=== PATIENT | female | born 1965 | race African-American/Black ===

== ENCOUNTER 2016-08-09 00:17 | Emergency (ER) | payer OTHER ==
[~2016-08-09] VITALS: Ht 165.1 cm; Wt 88.0 kg
[~2016-08-09 00:17] MED LIST: DIPH25CA58 PO; DOCU-27 PO; HYDR-971 PO; NAPR500T3 PO; OXYC-323 PO; PRED20TA PO; SULF1TAB24 PO
[2016-08-09 01:02] VITALS: BP 145/90
[2016-08-09] MEDS ORDERED: BENZ100C PO (01:08)
[2016-08-09] MEDS ORDERED: PROAIR RESPICL90 MCG IH (01:08)
[2016-08-09] MEDS ORDERED: PRED50TA PO (01:08)
[2016-08-09] MEDS ORDERED: PROM118S2 PO (01:08)
[2016-08-09] MEDS ORDERED: AMOX875T PO (01:08)
--- NOTE | 2016-08-09 01:08 | PHYS DOC ---
Past Medical History Past Medical History: Other Additional Past Medical Histor: HEART MURMUR (NON MEDICATED) Past Surgical History: Hysterectomy, Tubal ligation Additional Past Surgical Histo: Abscess drainage Alcohol Use: Occasionally Drug Use: None Adult General Chief Complaint Chief Complaint: COUGH HPI HPI Patient is a 51 year old female with history of smoking addiction who presents today with a productive cough, bilateral ear pain and body aches and chills for one week. Review of Systems Review of Systems Constitutional: Body aches and chills Eyes: Denies change in visual acuity, redness, or eye pain [] HENT: Bilateral ear pain Respiratory: Cough Cardiovascular: No additional information not addressed in HPI [] GI: Denies abdominal pain, nausea, vomiting, bloody stools or diarrhea [] : Denies dysuria or hematuria [] Musculoskeletal: Denies back pain or joint pain [] Integument: Denies rash or skin lesions [] Neurologic: Denies headache, focal weakness or sensory changes [] Endocrine: Denies polyuria or polydipsia [] Current Medications Current Medications Current Medications Medications (Trade) Dose Ordered Sig/[place] Start Time Stop Time Status Last Admin Dose Admin Promethazine HCl/ Codeine (Phenergan With Codeine) 10 ml 1X ONCE 08/09/16 01:15 08/09/16 01:16 Allergies Allergies Allergies Coded Allergies Type Severity Reaction Last Updated Verified aspirin Allergy Severe Hives 06/14/16 No Physical Exam Physical Exam Constitutional: Well developed, well nourished, no acute distress, non-toxic appearance. [] HENT: Normocephalic, atraumatic, bilateral external ears normal, oropharynx moist, no oral exudates, nose normal. [] Bilateral TM are mildly injected with small amount of cloudy fluid. Eyes: PERRLA, EOMI, conjunctiva normal, no discharge. [] Neck: Normal range of motion, no tenderness, supple, no stridor. [] Cardiovascular:Heart rate regular rhythm, no murmur [] Lungs & Thorax: Bilateral breath sounds clear to auscultation [] Abdomen: Bowel sounds normal, soft, no tenderness, no masses, no pulsatile masses. [] Skin: Warm, dry, no erythema, no rash. [] Back: No tenderness, no CVA tenderness. [] Extremities: No tenderness, no cyanosis, no clubbing, ROM intact, no edema. [] Neurologic: Alert and oriented X 3, normal motor function, normal sensory function, no focal deficits noted. [] Psychologic: Affect normal, judgement normal, mood normal. [] Current Patient Data Vital Signs Vital Signs Date Time Temp Pulse Resp B/P Pulse Ox O2 Delivery O2 Flow Rate FiO2 08/09/16 00:29 99.1 97 20 151/83 96 Room Air 99.1 EKG EKG [] Radiology/Procedures Radiology/Procedures [] Course & Med Decision Making Course & Med Decision Making Pertinent Labs and Imaging studies reviewed. (See chart for details) Patient is in the ED with a productive cough, bilateral otitis media, body aches and chills. Symptoms have been going on for 1 week. Flu swab has no benefit at this point in terms of treatment. Chest x-ray interpreted by Dr. Ross is negative for any acute findings. Discharged with amoxicillin for 10 days. Discharged with prednisone and albuterol inhaler Andie Patton. Encouraged to consider smoking cessation. Follow-up with her own PCP in one week. Dragon Disclaimer Dragon Disclaimer This electronic medical record was generated, in whole or in part, using a voice recognition dictation system. Departure Departure Impression: Primary Impression: Otitis media Additional Impressions: Acute bronchitis Body aches Chills Smoking addiction Disposition: 01 HOME, SELF-CARE Condition: STABLE Referrals: RAE VAUGHN MD (PCP) Follow-up with your own doctor in one week Patient Instructions: Acute Bronchitis, [id number], Otitis Media, Adult Additional Instructions: You were seen for acute bronchitis and otitis media. Take Tylenol/ Motrin for body aches and chills. Complete your antibiotics. Take the rest of the prescribed medicines as ordered. Follow-up with your doctor in one week. Come back to the emergency room for any concerning symptoms. Scripts Promethazine Hcl/Codeine (Promethazine-Codeine Syrup)118 Ml Syrup5 Ml PO Q4- 6HRS #90 ML Prov:RITAAANDRES GREENHOUSE TRANSPLANTER 08/09/16 Amoxicillin 875 Mg Tablet1 Tab PO BID #20 TAB Prov:MUTUNGA,ANDRES GREENHOUSE TRANSPLANTER 08/09/16 Albuterol Sulfate (Proair Respiclick)90 Mcg Aer.pow.ba1 Puff IH PRN Q6HRS PRN SHORTNESS OF BREATH #1 INHALER Prov:MUTUNGA,ANDRES GREENHOUSE TRANSPLANTER 08/09/16 Benzonatate (Tessalon Perle)100 Mg Capsule1 Cap PO TID #30 CAP Prov:RITACarrieANDRES ISSA 08/09/16 Prednisone 50 Mg Tablet1 Tab PO DAILY #5 TAB Prov:KAVONROBINAANDRES APRN 08/09/16 Problem Qualifiers Primary Impression: Otitis media Otitis media type: other nonsuppurative Laterality: bilateral Chronicity: acute Recurrence: not specified as recurrent Qualified Code: H65.193 - Other acute nonsuppurative otitis media, bilateral Additional Impressions: Acute bronchitis Bronchitis organism: unspecified organism Qualified Code: J20.9 - Acute bronchitis, unspecified DORISANDRES PARSONS Aug 09, 2016 01:08
[2016-08-09] MEDS ORDERED: PROMETH/CODEINE 6.25/10MG 5 ML SYRUP. PO ONE (01:15)
--- NOTE | 2016-08-09 07:33 | RAD ---
Portable chest, 08/09/2016: History: Cough Comparison is made to a study from 07/14/2014. The heart size and pulmonary vascularity are normal. No pulmonary infiltrates are seen. There is no evidence of pleural fluid. IMPRESSION: No acute cardiopulmonary abnormality is detected.
[2016-08-09 08:23] LABS: OBC FLU VALID
== END 2016-08-09 01:23 | disposition home or self-care (01) ==
LOC: ER 00:17
DX: H65.193 Other acute nonsuppurative otitis media, bilateral (principal); J20.9 Acute bronchitis, unspecified; F17.200 Nicotine dependence, unspecified, uncomplicated; Z88.6 Allergy status to analgesic agent
CPT/HCPCS: 71010; 87804; 99285-25

== ENCOUNTER 2016-08-16 19:25 | Emergency (ER) | payer OTHER ==
[~2016-08-16] VITALS: Ht 165.1 cm; Wt 88.0 kg
[~2016-08-16 19:25] MED LIST changes: +AMOX875T PO; +BENZ100C PO; +PRED50TA PO; +PROAIR RESPICL90 MCG IH; +PROM118S2 PO
[2016-08-16] MEDS ORDERED: PROAIR HFA8.5 GM INH (20:02)
--- NOTE | 2016-08-16 20:02 | PHYS DOC ---
Past Medical History Past Medical History: Hypertension, Other Past Surgical History: Hysterectomy, Tubal ligation Additional Past Surgical Histo: Abscess drainage Smoking: Cigarettes Alcohol Use: Occasionally Drug Use: None Adult General Chief Complaint Chief Complaint: HYPERTENSION HPI HPI Patient is a 51 year old female who presents with intermittent gradual onset headaches over the past 2 days and concern for elevated blood pressures. She has blood pressures in 160s/110s. She started a CCB per her Composer Teaching Artist today. She notes continued yet improving cough and intermittent chest pressure and states she did not get the right inhaler from the pharmacy. States her 's proair inhaler helps her and she would like a script for that. She states she took tylenol prior to arrival and does not want any other pain medication at this time. She denies f/c, exertional symptoms, diaphoresis, dizziness, vision changes, numbness, tingling, weakness. Review of Systems Review of Systems Constitutional: Denies fever or chills [] Eyes: Denies change in visual acuity, redness, or eye pain [] HENT: Denies nasal congestion or sore throat [] Respiratory: Denies shortness of breath [] Cardiovascular: No additional information not addressed in HPI [] GI: Denies abdominal pain, nausea, vomiting, bloody stools or diarrhea [] : Denies dysuria or hematuria [] Musculoskeletal: Denies back pain or joint pain [] Integument: Denies rash or skin lesions [] Neurologic: Denies focal weakness or sensory changes [] Endocrine: Denies polyuria or polydipsia [] Allergies Allergies Allergies Coded Allergies Type Severity Reaction Last Updated Verified aspirin Allergy Severe Hives 06/14/16 No Physical Exam Physical Exam Constitutional: Well developed, well nourished, no acute distress, non-toxic appearance. [] HENT: Normocephalic, atraumatic, bilateral external ears normal, oropharynx moist, no oral exudates, nose normal. [] Eyes: PERRLA, EOMI. [] Neck: Normal range of motion, supple, no stridor. [] Cardiovascular:Heart rate regular rhythm [] Lungs & Thorax: Bilateral breath sounds clear to auscultation. Intermittent dry cough. Normal work of breathing [] Abdomen: Bowel sounds normal, soft, no tenderness. [] Skin: Warm, dry, no erythema, no rash. [] Back: Normal ROM. [] Extremities: ROM intact, no edema. [] Neurologic: Alert and oriented X 3, normal motor function, normal sensory function, no focal deficits noted, cranial nerves 2 through 12 intact. [] Psychologic: Affect normal, judgement normal, mood normal. [] Current Patient Data Vital Signs Vital Signs Date Time Temp Pulse Resp B/P Pulse Ox O2 Delivery O2 Flow Rate FiO2 08/16/16 19:31 98.3 95 20 135/82 97 Room Air 98.3 EKG EKG EKG as interpreted by me as normal sinus rhythm, rate 88, no ST-T changes, normal intervals, no ectopy Course & Med Decision Making Course & Med Decision Making Appears well on exam. Encouraged close primary care doctor follow-up for chronic hypertension. Return precautions given. She understands and agrees with plan. Dragon Disclaimer Dragon Disclaimer This electronic medical record was generated, in whole or in part, using a voice recognition dictation system. Departure Departure Impression: Primary Impression: Cough Additional Impressions: Chronic hypertension Headache Disposition: HOME, SELF-CARE Condition: STABLE Referrals: RAE VAUGHN MD (PCP) Patient Instructions: Acute Bronchitis, [id number] Additional Instructions: Use albuterol inhaler as needed for cough. Follow-up with your primary care doctor within one week. Return for any concerns. Scripts Albuterol Sulfate (Proair Hfa Inhaler)8.5 Gm Hfa.aer.ad2 Puff INH Q4HRS PRN SHORTNESS OF BREATH #1 INHALER Prov:Stefani RILEY MD 08/16/16 Problem Qualifiers Additional Impressions: Headache Headache type: unspecified Headache chronicity pattern: episodic headache Intractability: not intractable Qualified Code: R51 - Headache Stefani RILEY MD Aug 16, 2016 20:02
[2016-08-16 20:10] VITALS: BP 119/77
--- NOTE | 2016-08-17 06:26 | EKG ---
[facility] [address] [place] [address] Test Date: 2016-08-16 Test Time: 19:39:59 Pat Name: LAWSON PLASCENCIA Department: Room: Gender: F Boiler Service Technician: : 1965 Requested By: Stefani RILEY Order Number: [id number] Reading MD: Silke Barr Measurements Intervals [place] Rate: 88 P: 89 MN: 140 QRS: 67 QRSD: 98 T: 73 QT: 346 QTc: 422 Interpretive Statements SINUS RHYTHM NORMAL EKG Electronically Signed On 08-19-2016 20:09:13 REGISTERED MIDWIFE by Silke Barr
== END 2016-08-16 20:15 | disposition home or self-care (01) ==
LOC: ER 19:25
DX: I10 Essential (primary) hypertension (principal); R51 Headache; R05 Cough; R07.89 Other chest pain; F17.210 Nicotine dependence, cigarettes, uncomplicated; Z90.710 Acquired absence of both cervix and uterus; Z88.6 Allergy status to analgesic agent
CPT/HCPCS: 93005; 99283-25; 99284-25

== ENCOUNTER 2016-10-13 12:15 | Emergency (ER) | payer OTHER ==
[~2016-10-13] VITALS: Ht 165.1 cm; Wt 91.2 kg
[~2016-10-13 12:15] MED LIST changes: +PROAIR HFA8.5 GM INH
--- NOTE | 2016-10-13 12:42 | EKG ---
[facility] [address] [place] [address] Test Date: 2016-10-13 Test Time: 12:38:33 Pat Name: LAWSON PLASCENCIA Department: Room: Gender: F Patient Transport Officer: : 1965 Requested By: LAVONNE SETH Order Number: [id number] Reading MD: Silke Barr Measurements Intervals [place] Rate: 99 P: 64 AK: 142 QRS: 59 QRSD: 96 T: 93 QT: 390 QTc: 500 Interpretive Statements SINUS RHYTHM NON SPECIFIC T ABNORMALITY PROLONGED QT NON SPECIFIC ST DEPRESSION Electronically Signed On 10-14-2016 17:36:55 CDT by Silke Barr
[2016-10-13] MEDS ORDERED: MECLIZINE HCL 12.5 MG TABLET. PO ONE (12:45)
--- NOTE | 2016-10-13 13:04 | PHYS DOC ---
Past Medical History Past Medical History: Hypertension, Other Additional Past Medical Histor: HEART MURMUR (NON MEDICATED) Past Surgical History: Hysterectomy, Tubal ligation Additional Past Surgical Histo: Abscess drainage Alcohol Use: Occasionally Drug Use: None Adult General Chief Complaint Chief Complaint: DIZZY/LIGHT HEADED HPI HPI 51-year-old female presenting to the emergency department today with nausea and vertigo. This been present for approximately 6-7 hours. She denies chest pain feels little short of breath. She reports a family history of vertigo. She does have a mild headache that is similar to previous headaches. She has a history of hypertension and has a history of smoking. Location generalized. Duration intermittent. No alleviating factors present. Review of systems is negative for chest pain abdominal pain diarrhea vomiting. All other review of systems is negative unless otherwise noted in history of present illness. Review of Systems Review of Systems SEE ABOVE. Current Medications Current Medications Current Medications Medications (Trade) Dose Ordered Sig/Gurmeet Start Time Stop Time Status Last Admin Dose Admin Meclizine HCl (Antivert) 25 mg 1X ONCE 10/13/16 12:45 10/13/16 12:46 DC 10/13/16 12:46 25 MG Allergies Allergies Allergies Coded Allergies Type Severity Reaction Last Updated Verified aspirin Allergy Severe Hives 06/14/16 No Physical Exam Physical Exam Constitutional: Well developed, well nourished, no acute distress, non-toxic appearance. HENT: Normocephalic, atraumatic, bilateral external ears normal, oropharynx moist, no oral exudates, nose normal. [] Eyes: PERRLA, EOMI, conjunctiva normal, no discharge. Neck: Normal range of motion, no tenderness, supple, no stridor. [] Negative Kernig sign. Negative Brudzinski's sign. Normal range of motion of the neck. Cardiovascular:Heart rate regular rhythm, no murmur Lungs & Thorax: Bilateral breath sounds clear to auscultation [] Abdomen: Bowel sounds normal, soft, no tenderness, no masses, no pulsatile masses. Skin: Warm, dry, no erythema, no rash. [] Back: No tenderness, no CVA tenderness. Extremities: No tenderness, no cyanosis, no clubbing, ROM intact, no edema. [] Neurologic: Mental status: Awake oriented and alert x3 Cranial nerves: Extraocular movements intact, eyebrows jane bilaterally smile symmetric, uvula elevation, shoulder shrug intact, tongue protrusion normal DTRs: 2+ Sensation: equal and normal in all extremities Strength: 5/5 in upper and lower extremities bilaterally HINTS testing: pt shows abnormal head impulse overlooks and readjusts, pos lateral horizontal nystagmus on lateral gaze, no skew present Psychologic: Affect normal, judgement normal, mood normal. [] Current Patient Data Vital Signs Vital Signs Date Time Temp Pulse Resp B/P Pulse Ox O2 Delivery O2 Flow Rate FiO2 10/13/16 12:19 97.9 105 22 147/102 98 Room Air 97.9 Lab Values Laboratory Tests Test 10/13/16 13:05 White Blood Count 15.3x10^3/uL (4.0-11.0) H Red Blood Count 5.92x10^6/uL (3.50-5.40) H Hemoglobin 15.5g/dL (12.0-15.5) Hematocrit 46.8% (36.0-47.0) Mean Corpuscular Volume 79fL (79-100) Mean Corpuscular Hemoglobin 26pg (25-35) Mean Corpuscular Hemoglobin Concent 33g/dL (31-37) Red Cell Distribution Width 16.9% (11.5-14.5) H Platelet Count 261x10^3/uL (140-400) Neutrophils (%) (Auto) 82% (31-73) H Lymphocytes (%) (Auto) 11% (24-48) L Monocytes (%) (Auto) 7% (0-9) Eosinophils (%) (Auto) 1% (0-3) Basophils (%) (Auto) 0% (0-3) Neutrophils # (Auto) 12.5x10^3uL (1.8-7.7) H Lymphocytes # (Auto) 1.6x10^3/uL (1.0-4.8) Monocytes # (Auto) 1.0x10^3/uL (0.0-1.1) Eosinophils # (Auto) 0.1x10^3/uL (0.0-0.7) Basophils # (Auto) 0.1x10^3/uL (0.0-0.2) Sodium Level 143mmol/L (136-145) Potassium Level 4.2mmol/L (3.5-5.1) Chloride Level 103mmol/L (98-107) Carbon Dioxide Level 28mmol/L (21-32) Anion Gap 12 (6-14) Blood Urea Nitrogen 10mg/dL (7-20) Creatinine 0.7mg/dL (0.6-1.0) Estimated GFR (Cockcroft-Gault) 106.3 Glucose Level 90mg/dL (70-99) Calcium Level 10.0mg/dL (8.5-10.1) Total Bilirubin 0.3mg/dL (0.2-1.0) Direct Bilirubin 0.1mg/dL (0.0-0.2) Aspartate Amino Transferase (AST) 17U/L (15-37) Alanine Aminotransferase (ALT) 24U/L (14-59) Alkaline Phosphatase 110U/L (46-116) Troponin I Quantitative < 0.017ng/mL (0.000-0.055) PZ-Ddx-Y-Type Natriuretic Peptide 96pg/mL (0-124) Total Protein 8.5g/dL (6.4-8.2) H Albumin 4.3g/dL (3.4-5.0) Lipase 59U/L (73-393) L Laboratory Tests 10/13/16 13:05 Laboratory Tests 10/13/16 13:05 EKG EKG [] Radiology/Procedures Radiology/Procedures [] Course & Med Decision Making Course & Med Decision Making Pertinent Labs and Imaging studies reviewed. (See chart for details) 51-year-old female presenting the emergency department with vertigo. Vital signs showed mild hypertension which is chronic for the patient. She currently takes medication for this. Blood work is obtained. Nonspecific leukocytosis. Patient has a history of hysterectomy. She was given meclizine for her vertigo.HINTs testing suggestive of peripheral etiology. obtained x-ray EKG unremarkable. The patient was then discharged home to follow-up with primary care physician over the next 2-3 days. She is provided with meclizine for vertigo [id number] discharge instructions and return precautions given. Patient and who is here with her today are comfortable with plan. Dragon Disclaimer Dragon Disclaimer This electronic medical record was generated, in whole or in part, using a voice recognition dictation system. Departure Departure Impression: Primary Impression: Vertigo Disposition: HOME, SELF-CARE Condition: STABLE Referrals: RAE VAUGHN MD (PCP) Patient Instructions: Vertigo Additional Instructions: Thank you for allowing us to participate in your care today. Followup with your primary care physician in 3 days if your symptoms do not improve. If you do not have a primary care provider you can ask for a list of our primary care providers. Return to the emergency department you have any new or concerning findings. This should be evaluated by the primary care physician and any necessary consulting services for continued management within a few days after discharge. Return to emergency room if you have any new or concerning symptoms including but not limited to fever, chills, nausea, vomiting, intractable pain, any new rashes, chest pain, shortness of air, uncontrolled bleeding, difficulty breathing, and/or vision loss. You may have been prescribed medication that can change in your level of thinking and ability to operate machinery. These medications include hydrocodone and Ativan. Also, Benadryl has been known to do this as well. Be sure to check with your pharmacist and ask if the medications you've prescribed can affect your level of consciousness. I recommend not operating heavy machinery or driving while on medication such as these. Scripts Meclizine Hcl 25 Mg Tablet1 Tab PO PRN TID PRN NAUSEA #9 TAB Prov:LAVONNE SETH MD 10/13/16 LAVONNE SETH MD Oct 13, 2016 13:04
[2016-10-13 13:18] LABS: BASO # 0.1 x10^3/uL (0.0-0.2); BASO % 0 % (0-3); EOS % 1 % (0-3); HEMATOCRIT 46.8 % (36.0-47.0); HEMOGLOBIN 15.5 g/dL (12.0-15.5); LYMPH # 1.6 x10^3/uL (1.0-4.8); LYMPH % 11 % (24-48); MEAN CORPUSCULAR HEMOGLOBIN 26 pg (25-35); MEAN CORPUSCULAR HGB CONC 33 g/dL (31-37); MEAN CORPUSCULAR VOLUME 79 fL (79-100); MONO % 7 % (0-9); NEUT % 82 % (31-73); PLATELET COUNT 261 x10^3/uL (140-400); RED BLOOD COUNT 5.92 x10^6/uL (3.50-5.40); RED CELL DISTRIBUTION WIDTH 16.9 % (11.5-14.5); WHITE BLOOD COUNT 15.3 x10^3/uL (4.0-11.0)
[2016-10-13 13:26] LABS: CREATININE 0.7 mg/dL (0.6-1.0); GFR 106.3; POTASSIUM 4.2 mmol/L (3.5-5.1)
--- NOTE | 2016-10-13 13:31 | RAD ---
AP portable chest radiograph 10/13/2016 Clinical History: Chest pain. An AP portable erect digital radiograph of the chest was obtained. Comparison study is dated 08/09/2016. The cardiac silhouette is normal in size. The thoracic aorta is minimally tortuous. No acute pulmonary infiltrate is seen. No pleural effusion or pneumothorax is noted. The osseous structures are unchanged. Impression: No acute abnormality is seen.
[2016-10-13 13:34] LABS: ALBUMIN 4.3 g/dL (3.4-5.0); DIRECT BILIRUBIN 0.1 mg/dL (0.0-0.2); TOTAL BILIRUBIN 0.3 mg/dL (0.2-1.0); TOTAL PROTEIN 8.5 g/dL (6.4-8.2)
[2016-10-13] MEDS ORDERED: MECL25TA3 PO (13:48)
[2016-10-13 14:00] VITALS: BP 151/96
== END 2016-10-13 14:07 | disposition home or self-care (01) ==
LOC: ER 12:15
DX: R42 Dizziness and giddiness (principal); R51 Headache; D72.829 Elevated white blood cell count, unspecified; I10 Essential (primary) hypertension; Z90.710 Acquired absence of both cervix and uterus; Z98.51 Tubal ligation status; Z88.6 Allergy status to analgesic agent
CPT/HCPCS: 36415; 71010; 80048; 80076; 83690; 83880; 84484; 85027; 93005; 99285; J8597; 10060

== ENCOUNTER 2017-02-05 19:41 | Emergency (ER) | payer OTHER ==
[~2017-02-05] VITALS: Ht 166.4 cm; Wt 91.6 kg
[~2017-02-05 19:41] MED LIST changes: +DOCU-109 PO; -DOCU-27 PO; +MECL25TA3 PO
[2017-02-05] MEDS ORDERED: LIDOCAINE 1% / SOD BICARB 8.4% 20 ML VIAL. IJ ONE (20:30)
--- NOTE | 2017-02-05 20:53 | PHYS DOC ---
Past Medical History Past Medical History: Hypertension, Other Additional Past Medical Histor: HEART MURMUR (NON MEDICATED), frequent abcesses Past Surgical History: Hysterectomy, Tubal ligation Additional Past Surgical Histo: Abscess drainage Additional Information: 1 ppd Alcohol Use: Occasionally Drug Use: None Adult General Chief Complaint Chief Complaint: ABSCESS HPI HPI Patient is a 51 year old female presents to the emergency department stating that she has welts and abscesses under her left axilla that is worse than the one under her right. She states that she has an area on her right buttocks as well. She denies any drainage or discharge coming from any of them. She states the one under her left axilla is very soft and very tender. Patient states that her tetanus immunization is up-to-date. Upon being triaged patient does state that she has had suicidal thoughts. Patient states she has a history of depression has been off of her medicine for a while. Review of Systems Review of Systems Constitutional: Denies fever or chills [] Eyes: Denies change in visual acuity, redness, or eye pain [] HENT: Denies nasal congestion or sore throat [] Respiratory: Denies cough or shortness of breath [] Cardiovascular: No additional information not addressed in HPI [] GI: Denies abdominal pain, nausea, vomiting, bloody stools or diarrhea [] : Denies dysuria or hematuria [] Musculoskeletal: Denies back pain or joint pain [] Integument: Denies rash or skin lesions boiled to bilateral axillary's. Neurologic: Denies headache, focal weakness or sensory changes [] Endocrine: Denies polyuria or polydipsia [] Current Medications Current Medications Current Medications Medications (Trade) Dose Ordered Sig/[facility] Start Time Stop Time Status Last Admin Dose Admin Lidocaine/Sodium Bicarbonate (Buffered Lidocaine 1%) 20 ml 1X ONCE 02/05/17 20:30 02/05/17 20:31 DC 02/05/17 20:35 20 ML Allergies Allergies Allergies Coded Allergies Type Severity Reaction Last Updated Verified aspirin Allergy Severe Hives 06/14/16 No Physical Exam Physical Exam Constitutional: Well developed, well nourished, no acute distress, non-toxic appearance. [] HENT: Normocephalic, atraumatic, bilateral external ears normal, oropharynx moist, no oral exudates, nose normal. [] Eyes: PERRLA, EOMI, conjunctiva normal, no discharge. [] Neck: Normal range of motion, no tenderness, supple, no stridor. [] Cardiovascular:Heart rate regular rhythm, no murmur [] Lungs & Thorax: Bilateral breath sounds clear to auscultation [] Skin: Warm, dry, no erythema, no rash. Abscess noted to left axilla with fluctuant noted, Right axilla with abscess that is hard and nonfluctuant. Patient with no abscess noted to the right buttock. Back: No tenderness Extremities: No tenderness, no cyanosis, no clubbing, ROM intact, no edema. [] Neurologic: Alert and oriented X 3, normal motor function, normal sensory function, no focal deficits noted. [] Psychologic: Affect normal, judgement normal, mood normal. Patient is very tearful and states she is having problems with her depression and would like help getting outpatient therapy. Current Patient Data Vital Signs Vital Signs Date Time Temp Pulse Resp B/P (MAP) Pulse Ox O2 Delivery O2 Flow Rate FiO2 02/05/17 19:44 98.4 90 18 100 Room Air 98.4 EKG EKG [] Radiology/Procedures Radiology/Procedures [] Course & Med Decision Making Course & Med Decision Making Pertinent Labs and Imaging studies reviewed. (See chart for details) Left axilla abscess was cleansed with Betadine, injected with 2 mL of 1% lidocaine buffered. Patient with thick yellow secretion site lanced with a #11 blade to continue to express thick yellow secretions. Patient tolerated procedure well. Patient will be placed on Bactrim 2 tablets twice day for the next 10 days. Patient was also encouraged to use warm moist packs to the right axilla abscess. PAT has been notified to come in and evaluate the patient. PAT here to evaluate the patient. Information provided to patient for followup with mental health via the PAT. Patient will be discharged home in stable condition. Signs and symptoms to return to emergency department. Patient was encouraged to followup with primary care provider in 5-7 days. Patient agrees with discharge instructions, treatment regimen and followup recommendations. All questions and concerns have been answered at patients bedside. [] Dragon Disclaimer Dragon Disclaimer This electronic medical record was generated, in whole or in part, using a voice recognition dictation system. Departure Departure Impression: Primary Impression: Abscess Disposition: HOME, SELF-CARE Condition: STABLE Referrals: RAE VAUGHN MD (PCP) Patient Instructions: Abscess, [id number] Additional Instructions: Keep the area clean and dry. Medication as prescribed. Hydrocodone will cause drowsiness do not take any be alert and oriented. Follow-up to primary care physician in the next 5-7 days. Follow-up through mental health provider within the next week. Return back to emergency prior signs symptoms of become worse. Scripts Sulfamethoxazole/Trimethoprim (BACTRIM DS TABLET) 1 Each Tablet 2 TAB PO BID, #40 TAB Prov: NARESH HICKMAN APRN 02/05/17 Hydrocodone/Apap 5-325 (NORCO 5-325 TABLET) 1 Each Tablet 1 TAB PO PRN Q6HRS Y for PAIN, #10 TAB 0 Refills Prov: NARESH HICKMAN APRN 02/05/17 NARESH HICKMAN APRN Feb 05, 2017 20:53
[2017-02-05 21:30] VITALS: BP 169/88
[2017-02-05] MEDS ORDERED: SULF1TAB24 PO (21:55)
[2017-02-05] MEDS ORDERED: HYDR-971 PO (21:55)
== END 2017-02-05 22:01 | disposition home or self-care (01) ==
LOC: ER 19:41
DX: L02.412 Cutaneous abscess of left axilla (principal); R45.851 Suicidal ideations; F32.9 Major depressive disorder, single episode, unspecified; I10 Essential (primary) hypertension; F17.200 Nicotine dependence, unspecified, uncomplicated; Z88.6 Allergy status to analgesic agent
CPT/HCPCS: 10060; 99283-25

== ENCOUNTER 2017-07-04 16:55 | Emergency (ER) | payer OTHER ==
[2017-07-04] MEDS: CYCLOBENZAPRINE 10 MG TABLET. PO (18:33)
[2017-07-04] MEDS: HYDROcodone/APAP 5/325MG 1 TAB TABLET PO (18:34)
[2017-07-04] MEDS: predniSONE 20 MG TABLET PO (18:34)
== END 2017-07-04 19:30 | disposition home or self-care (01) ==
LOC: ER 16:55
DX: M19.012 Primary osteoarthritis, left shoulder (principal); M75.92 Shoulder lesion, unspecified, left shoulder; I10 Essential (primary) hypertension
CPT/HCPCS: 73030; 93005; 99284-25; J7512

== ENCOUNTER 2018-09-24 13:00 | Emergency (ER) | payer OTHER ==
[~2018-09-24] VITALS: Ht 165.1 cm; Wt 89.4 kg
[2018-09-24 13:00] VITALS: BP 150/89
[~2018-09-24 13:00] MED LIST changes: +ALBU2.5V8 INH; +CYCL10TA2 PO; +DICL50TA4 PO; +GABA300C18 PO; +HYDR-3164 PO; -HYDR-971 PO; +METH4TAB2 PO; +NAPR-514 PO; -NAPR500T3 PO; -OXYC-323 PO; +OXYC1TAB15 PO; -PROAIR HFA8.5 GM INH; -PROM118S2 PO; +PROM118S5 PO
[2018-09-24] MEDS ORDERED: CEPH500C PO (13:41)
[2018-09-24] MEDS ORDERED: SULF1TAB24 PO (13:41)
[2018-09-24] MEDS ORDERED: HYDR-3164 PO (14:19)
--- NOTE | 2018-09-24 16:01 | PHYS DOC ---
Past Medical History Past Medical History: Hypertension, Other Additional Past Medical Histor: "heart murmur"; skin boils, HS Past Surgical History: Hysterectomy, Other Additional Past Surgical Histo: R armpit Alcohol Use: Occasionally Drug Use: None Adult General Chief Complaint Chief Complaint: ABSCESS HPI HPI Patient is a 53 year old female who presents with abscess she has one in the groin and one in the axilla 1 mg her to draining she actually feels better both orbital on the axilla she thinks needs to be drained. She feels feverish at times Review of Systems Review of Systems Constitutional: Eyes: Denies change in visual acuity, redness, or eye pain [] HENT: Denies nasal congestion or sore throat [] Respiratory: Denies cough or shortness of breath [] Cardiovascular: No additional information not addressed in HPI [] Neurologic: Denies headache, focal weakness or sensory changes [] Endocrine: Denies polyuria or polydipsia [] All other systems were reviewed and found to be within normal limits, except as documented in this note. Allergies Allergies Allergies Coded Allergies Type Severity Reaction Last Updated Verified aspirin Allergy Severe Hives 06/14/16 No Physical Exam Physical Exam Constitutional: Well developed, well nourished, no acute distress, non-toxic appearance. [] HENT: Normocephalic, atraumatic, bilateral external ears normal, oropharynx moist, no oral exudates, nose normal. [] Eyes: PERRLA, EOMI, conjunctiva normal, no discharge. [] Neck: Normal range of motion, no tenderness, supple, no stridor. [] Pulmonary: Normal respiratory effort no increased work of breathing no obvious chest wall trauma Skin: Patient has a 3 cm abscess in the left axilla surrounding induration and fluctuance is noted tenderness is noted. Patient deferred groin exam at this time due to the fact that it is already draining she says Neurologic: Alert and oriented X 3, normal motor function, normal sensory function, no focal deficits noted. [] Psychologic: Affect normal, judgement normal, mood normal. [] Current Patient Data Vital Signs Vital Signs Date Time Temp Pulse Resp B/P (MAP) Pulse Ox O2 Delivery O2 Flow Rate FiO2 09/24/18 13:00 98.2 85 18 150/89 (109) 98 98.2 EKG EKG [] Radiology/Procedures Radiology/Procedures [] Course & Med Decision Making Course & Med Decision Making Pertinent Labs and Imaging studies reviewed. (See chart for details) []Procedure note: Incision and drainage verbal consent obtained area prepped usual fashion lidocaine with epi for anesthesia 1 cm incision was made overlying this 3 cm abscess in the left axilla approximate 4-5 ML's of pus was returned loculations were explored patient tolerated overall very well he was covered with gauze and patient was given wound care precautions as well as prescription for Bactrim and Keflex with return precautions discussed in detail. Dragon Disclaimer Dragon Disclaimer This electronic medical record was generated, in whole or in part, using a voice recognition dictation system. Departure Departure Impression: Primary Impression: Hidradenitis suppurativa of left axilla Disposition: HOME, SELF-CARE Condition: STABLE Patient Instructions: Hidradenitis Suppurativa, Sweat Gland Abscess Scripts Hydrocodone/Apap 5-325 (NORCO 5-325 TABLET) 1 Each Tablet 1-2 EACH PO PRN Q6HRS PRN for PAIN, #10 as needed for pain Prov: ALEJANDRA TERRELL MD 09/24/18 Cephalexin (CEPHALEXIN) 500 Mg Capsule 1 CAP PO QID, #40 CAP Prov: ALEJANDRA TERRELL MD 09/24/18 Sulfamethoxazole/Trimethoprim (BACTRIM DS TABLET) 1 Each Tablet 1 TAB PO BID, #20 TAB Prov: ALEJANDRA TERRELL MD 09/24/18 ALEJANDRA TERRELL MD Sep 24, 2018 16:01
== END 2018-09-24 14:30 | disposition home or self-care (01) ==
LOC: ER 13:00
DX: L73.2 Hidradenitis suppurativa (principal); L02.412 Cutaneous abscess of left axilla; I10 Essential (primary) hypertension; Z88.6 Allergy status to analgesic agent
CPT/HCPCS: 10060; 99283

== ENCOUNTER 2018-12-01 19:42 | Emergency (ER) | payer OTHER ==
[~2018-12-01] VITALS: Ht 165.1 cm; Wt 108.9 kg
[~2018-12-01 19:42] MED LIST changes: +CEPH500C PO
[2018-12-01] MEDS ORDERED: IV NORMAL SALINE 1000ML BAG 1,000 ML IV SCH (20:29)
[2018-12-01] MEDS ORDERED: VANCOMYCIN PER PHARMACY MC ONE (20:30)
[2018-12-01] MEDS ORDERED: ACETAMINOPHEN 500 MG TABLET PO ONE (21:00)
[2018-12-01] MEDS ORDERED: PIPERACILLIN/TAZOBACTAM 4.5 GM in IV NORMAL SALINE 100ML 100 ML IV ONE (21:00)
[2018-12-01 21:26] LABS: BASO # 0.1 x10^3/uL (0.0-0.2); BASO % 1 % (0-3); EOS % 1 % (0-3); HEMATOCRIT 40.7 % (36.0-47.0); HEMOGLOBIN 13.6 g/dL (12.0-15.5); LYMPH # 1.9 x10^3/uL (1.0-4.8); LYMPH % 28 % (24-48); MEAN CORPUSCULAR HEMOGLOBIN 27 pg (25-35); MEAN CORPUSCULAR HGB CONC 33 g/dL (31-37); MEAN CORPUSCULAR VOLUME 82 fL (79-100); MONO # 0.8 x10^3/uL (0.0-1.1); MONO % 11 % (0-9); NEUT % 59 % (31-73); PLATELET COUNT 227 x10^3/uL (140-400); RED CELL DISTRIBUTION WIDTH 15.8 % (11.5-14.5); WHITE BLOOD COUNT 6.8 x10^3/uL (4.0-11.0)
[2018-12-01] MEDS ORDERED: VANCOMYCIN 2 GM in IV NORMAL SALINE 500ML BAG 500 ML IV ONE (21:30)
[2018-12-01 21:36] LABS: CALCIUM 9.1 mg/dL (8.5-10.1); CREATININE 0.8 mg/dL (0.6-1.0); GFR 90.4; POTASSIUM 3.9 mmol/L (3.5-5.1)
[2018-12-01 21:42] LABS: ALBUMIN 3.6 g/dL (3.4-5.0); ALBUMIN/GLOBULIN RATIO 1.1 (1.0-1.7); TOTAL BILIRUBIN 0.2 mg/dL (0.2-1.0); TOTAL PROTEIN 6.9 g/dL (6.4-8.2)
[2018-12-01 22:11] LABS: BILIRUBIN,URINE NEGATIVE (NEG); CLARITY,URINE CLEAR; COLOR,URINE YELLOW; NITRITE,URINE NEGATIVE (NEG); PROTEIN,URINE NEGATIVE (NEG-TRACE)
[2018-12-01 22:24] LABS: BACTERIA,URINE FEW /HPF (0-FEW)
[2018-12-01 22:25] LABS: SQUAMOUS EPITHELIAL CELL,UR OCC /LPF
--- NOTE | 2018-12-01 23:22 | RAD ---
CHEST AP ONLY History: Fever Comparison: October 13, 2016 Findings: Single view of the chest is submitted. There is no infiltrate, pneumothorax, or effusion. The pericardial cardiac silhouette is within normal limits in size. Impression: 1. There is no radiographic evidence of acute cardiopulmonary disease. Electronically signed by: Redd Castillo MD (12/01/2018 11:19 PM) [facility]
[2018-12-01] MEDS ORDERED: SULF1TAB24 PO (23:41)
[2018-12-01] MEDS ORDERED: CEPH500T PO (23:41)
--- NOTE | 2018-12-01 23:41 | PHYS DOC ---
Past Medical History Past Medical History: Hypertension, Other Additional Past Medical Histor: "heart murmur"; skin boils, HS Past Surgical History: Hysterectomy, Other Additional Past Surgical Histo: R armpit Alcohol Use: Occasionally Drug Use: None Adult General Chief Complaint Chief Complaint: GENERALIZED BODY ACHES HPI HPI Patient is a 53 year old female with hx of HTN, abscess, MRSA who presents with multiple complaints. Patient states since this morning she's had body aches chills and has been running a fever. She is also complaining of cough with milky sputum. She is also complaining of chronic abscesses on her abdomen, she states the 10 to come on and off. She states some of them have ruptured and drained. She states she has not been on antibiotics for the last 3 months. Denies any nausea vomiting. Denies any chest pain or shortness of breath. Review of Systems Review of Systems Constitutional: Reports fever Eyes: Denies change in visual acuity, redness, or eye pain [] HENT: Denies nasal congestion or sore throat [] Respiratory: Reports cough, denies shortness of breath [] Cardiovascular: No additional information not addressed in HPI [] GI: Denies abdominal pain, nausea, vomiting, bloody stools or diarrhea [] : Denies dysuria or hematuria [] Musculoskeletal: Denies back pain or joint pain [] Integument: Reports abscess to the abdomen and groin region Neurologic: Denies headache, focal weakness or sensory changes [] All other systems were reviewed and found to be within normal limits, except as documented in this note. Current Medications Current Medications Current Medications Medications (Trade) Dose Ordered Sig/[facility] Start Time Stop Time Status Last Admin Dose Admin Acetaminophen (Tylenol) 1,000 mg 1X ONCE 12/01/18 21:00 12/01/18 21:01 DC 12/01/18 21:01 1,000 MG Piperacillin Sod/ Tazobactam Sod 4.5 gm/Sodium Chloride 100 ml @ 200 mls/hr 1X ONCE 12/01/18 21:00 12/01/18 21:29 DC 12/01/18 21:39 200 MLS/HR Sodium Chloride 1,000 ml @ 1,710 mls/hr Q36M 12/01/18 20:29 12/01/18 21:28 DC 12/01/18 21:39 1,710 MLS/HR Vancomycin HCl (Vanco Per Pharmacy) 1 each 1X ONCE 12/01/18 20:30 12/01/18 20:37 DC Vancomycin HCl 2 gm/Sodium Chloride 500 ml @ 250 mls/hr 1X ONCE 12/01/18 21:30 12/01/18 23:29 DC 12/01/18 22:18 250 MLS/HR Allergies Allergies Allergies Coded Allergies Type Severity Reaction Last Updated Verified aspirin Allergy Severe Hives 06/14/16 No Physical Exam Physical Exam Constitutional: Well developed, well nourished, no acute distress, non-toxic a ppearance. [] HENT: Normocephalic, atraumatic, bilateral external ears normal, oropharynx moist, no oral exudates, nose normal. [] Eyes: PERRLA, EOMI, conjunctiva normal, no discharge. [] Neck: Normal range of motion, no tenderness, supple, no stridor. [] Cardiovascular:Heart rate regular rhythm, no murmur [] Lungs & Thorax: Bilateral breath sounds clear to auscultation [] Abdomen: Bowel sounds normal, soft, no tenderness, no masses, no pulsatile masses. [] Skin: 2 tiny open wounds noted on the right lower quadrant, they appear open and draining. The drainage is bloody. Patient states that once in her groin region already open, she will not show them to me. Back: No tenderness, no CVA tenderness. [] Extremities: No tenderness, no cyanosis, no clubbing, ROM intact, no edema. [] Neurologic: Alert and oriented X 3, normal motor function, normal sensory function, no focal deficits noted. [] Psychologic: Affect normal, judgement normal, mood normal. [] Current Patient Data Vital Signs Vital Signs Date Time Temp Pulse Resp B/P (MAP) Pulse Ox O2 Delivery O2 Flow Rate FiO2 12/01/18 22:31 84 20 133/71 (91) 95 Room Air 12/01/18 19:55 100.4 100.4 Lab Values Laboratory Tests Test 12/01/18 21:11 12/01/18 21:30 White Blood Count 6.8 x10^3/uL (4.0-11.0) Red Blood Count 5.00 x10^6/uL (3.50-5.40) Hemoglobin 13.6 g/dL (12.0-15.5) Hematocrit 40.7 % (36.0-47.0) Mean Corpuscular Volume 82 fL (79-100) Mean Corpuscular Hemoglobin 27 pg (25-35) Mean Corpuscular Hemoglobin Concent 33 g/dL (31-37) Red Cell Distribution Width 15.8 % (11.5-14.5) H Platelet Count 227 x10^3/uL (140-400) Neutrophils (%) (Auto) 59 % (31-73) Lymphocytes (%) (Auto) 28 % (24-48) Monocytes (%) (Auto) 11 % (0-9) H Eosinophils (%) (Auto) 1 % (0-3) Basophils (%) (Auto) 1 % (0-3) Neutrophils # (Auto) 4.0 x10^3uL (1.8-7.7) Lymphocytes # (Auto) 1.9 x10^3/uL (1.0-4.8) Monocytes # (Auto) 0.8 x10^3/uL (0.0-1.1) Eosinophils # (Auto) 0.0 x10^3/uL (0.0-0.7) Basophils # (Auto) 0.1 x10^3/uL (0.0-0.2) Sodium Level 140 mmol/L (136-145) Potassium Level 3.9 mmol/L (3.5-5.1) Chloride Level 105 mmol/L (98-107) Carbon Dioxide Level 24 mmol/L (21-32) Anion Gap 11 (6-14) Blood Urea Nitrogen 9 mg/dL (7-20) Creatinine 0.8 mg/dL (0.6-1.0) Estimated GFR (Cockcroft-Gault) 90.4 BUN/Creatinine Ratio 11 (6-20) Glucose Level 112 mg/dL (70-99) H Lactic Acid Level 1.4 mmol/L (0.4-2.0) Calcium Level 9.1 mg/dL (8.5-10.1) Total Bilirubin 0.2 mg/dL (0.2-1.0) Aspartate Amino Transferase (AST) 12 U/L (15-37) L Alanine Aminotransferase (ALT) 16 U/L (14-59) Alkaline Phosphatase 99 U/L (46-116) Troponin I Quantitative < 0.017 ng/mL (0.000-0.055) Total Protein 6.9 g/dL (6.4-8.2) Albumin 3.6 g/dL (3.4-5.0) Albumin/Globulin Ratio 1.1 (1.0-1.7) Procalcitonin < 0.10 ng/mL (0.00-0.10) Urine Color Yellow Urine Clarity Clear Urine pH 7.0 Urine Specific [place] 1.020 Urine Protein Negative mg/dL (NEG-TRACE) Urine Glucose (UA) Negative mg/dL (NEG) Urine Ketones (Stick) Negative mg/dL (NEG) Urine Blood Moderate (NEG) Urine Nitrite Negative (NEG) Urine Bilirubin Negative (NEG) Urine Urobilinogen Dipstick 1.0 mg/dL (0.2 mg/dL) Urine Leukocyte Esterase Small (NEG) Urine RBC 6-10 /HPF (0-2) Urine WBC 5-10 /HPF (0-4) Urine Squamous Epithelial Cells Occ /LPF Urine Bacteria Few /HPF (0-FEW) Urine Mucus Mod /LPF Laboratory Tests 12/01/18 21:11 Laboratory Tests 12/01/18 21:11 EKG EKG 21:[address] Swanson sinus rhythm heart rate 96 no STEMI[] Radiology/Procedures Radiology/Procedures []PROCEDURE: CHEST AP ONLY CHEST AP ONLY History: Fever Comparison: October 13, 2016 Findings: Single view of the chest is submitted. There is no infiltrate, pneumothorax, or effusion. The pericardial cardiac silhouette is within normal limits in size. Impression: 1. There is no radiographic evidence of acute cardiopulmonary disease. Electronically signed by: Mandeep Dee MD (12/01/2018 11:19 PM) [facility] DICTATED and SIGNED BY: MANDEEP DEE MD DATE: 12/01/18 3439 Course & Med Decision Making Course & Med Decision Making Pertinent Labs and Imaging studies reviewed. (See chart for details) This is a 53-year-old female patient presenting to the ED today with multiple complaints including fever, body aches, chills, cough, chronic abscesses on her abdomen and groin region that sounds like they've been positive for MRSA before. Tetanus is up-to-date, on arrival to the ED temperature 100.4, heart rate 111, started on sepsis protocol including IV antibiotics and fluids. Given Tylenol as well. Chest x-ray is negative, CBC with normal WBC, CMP with no acute findings, lactic is normal, urine analysis is noted for UTI. Patient was discharged with cephalexin, and Bactrim to cover her for UTI as well as her chronic abscess. Follow-up with her PCP in the next 1-2 weeks. Provided return precautions and discharged in stable condition. Dragon Disclaimer Dragon Disclaimer This electronic medical record was generated, in whole or in part, using a voice recognition dictation system. Departure Departure Impression: Primary Impression: Abdominal wall abscess Additional Impressions: Urinary tract infection Fever Cough Disposition: HOME, SELF-CARE Condition: STABLE Referrals: KALINA PARR MD (PCP) follow up in 1-2 weeks Patient Instructions: Abscess, Fever, Adult, Urinary Tract Infection Additional Instructions: You were evaluated in the emergency room and noted to have chronic abscesses and urinary tract infection, cough and fever, please take Tylenol as needed for your fever. Complete the prescribed antibiotics and follow-up with your own doctor in 1-2 weeks. Scripts Sulfamethoxazole/Trimethoprim (BACTRIM DS TABLET) 1 Each Tablet 1 TAB PO BID, #20 TAB Prov: ANDRES GEORGE APRN 12/01/18 Cephalexin (CEPHALEXIN) 500 Mg Tablet 1 TAB PO QID, #40 TAB Prov: ANDRES GEORGE APRN 12/01/18 Problem Qualifiers Additional Impressions: Urinary tract infection Urinary tract infection type: site unspecified Hematuria presence: without hematuria Qualified Codes: N39.0 - Urinary tract infection, site not specified Fever Fever type: unspecified Qualified Codes: R50.9 - Fever, unspecified ANDRES GEORGE APRN Dec 01, 2018 23:41
[2018-12-02] VITALS: BP 126/75
--- NOTE | 2018-12-02 05:40 | EKG ---
[facility] [address] [place] [address] Test Date: 2018-12-01 Test Time: 21:29:35 Pat Name: LAWSON PLASCENCIA Department: Room: Gender: F Machine Fixer: : 1965 Requested By: ANDRES GEORGE Order Number: [id number] Reading MD: Measurements Intervals [place] Rate: 96 P: 64 ID: [id number] QRS: 65 QRSD: 96 T: 77 QT: 342 QTc: 433 Interpretive Statements SINUS RHYTHM LEFT ATRIAL ABNORMALITY QRS(T) CONTOUR ABNORMALITY CONSIDER ANTEROSEPTAL MYOCARDIAL DAMAGE ABNORMAL ECG RI6.01 No previous ECG available for comparison
== END 2018-12-02 00:25 | disposition home or self-care (01) ==
LOC: ER 19:42
DX: L02.211 Cutaneous abscess of abdominal wall (principal); N39.0 Urinary tract infection, site not specified; R05 Cough; R50.9 Fever, unspecified; I10 Essential (primary) hypertension; Z90.710 Acquired absence of both cervix and uterus; Z88.6 Allergy status to analgesic agent
CPT/HCPCS: 36415; 71045; 80053; 81001; 83605; 84145; 84484; 85025; 87040; 87071; 87075; 93005; 96365; 96367; 99285; J2543; J3370; J7030; J7040

== ENCOUNTER 2019-01-13 13:51 | Emergency (ER) | payer OTHER ==
[~2019-01-13] VITALS: Ht 167.6 cm; Wt 91.2 kg
[~2019-01-13 13:51] MED LIST changes: +CEPH500T PO
[2019-01-13 14:01] VITALS: BP 163/103
--- NOTE | 2019-01-13 14:22 | PHYS DOC ---
Past Medical History Past Medical History: Hypertension, Other Additional Past Medical Histor: "heart murmur"; skin boils, HS Past Surgical History: Hysterectomy, Other Additional Past Surgical Histo: R armpit Alcohol Use: Occasionally Drug Use: None Adult General Chief Complaint Chief Complaint: ABSCESS HPI HPI 53-year-old female presents to ER via POV for complaints of abscess in her groin/genital area which has increased in size/pain over past couple of days. Patient is been evaluated in the ER prior for abscess and states she has seen Dr. Acevedo multiple times for abscess in her axillary and groin- with +MRSA hx. Patient reports some she has had multiple small bumps on her abdomen although the one in her groin is the largest. Patient states she was just in the emergency room in November and had same area drained with packing. She denies abd pain, N/V/D, or fever. She also reports she has had urinary frequency denies hematuria, urgency, or vaginal symptoms. Review of Systems Review of Systems Constitutional: Denies fever or chills [] Eyes: Denies change in visual acuity, redness, or eye pain [] HENT: Denies nasal congestion or sore throat [] Respiratory: Denies cough or shortness of breath [] Cardiovascular: No additional information not addressed in HPI [] GI: Denies abdominal pain, nausea, vomiting, bloody stools or diarrhea [] : Denies dysuria or hematuria. Reports urinary freq. Musculoskeletal: Denies back pain or joint pain [] Integument: Reports multiple sores on abd. and upper genital Neurologic: Denies focal weakness or sensory changes [] Endocrine: Denies polyuria or polydipsia [] All other systems were reviewed and found to be within normal limits, except as documented in this note. Current Medications Current Medications Current Medications Medications (Trade) Dose Ordered Sig/[place] Start Time Stop Time Status Last Admin Dose Admin Acetaminophen/ Hydrocodone Bitart (Lortab 5/325) 1 tab 1X ONCE 01/13/19 14:30 01/13/19 14:31 DC 01/13/19 14:29 1 TAB Diphtheria/ Tetanus/[facility]cell Pertussis (Boostrix) 0.5 ml ONCE ONCE 01/13/19 16:00 01/13/19 16:01 Ibuprofen (Motrin) 400 mg 1X ONCE 7/23/19 14:30 01/13/19 14:31 DC 01/13/19 14:29 400 MG Lidocaine HCl (Lidocaine Pf 2% Vial) 4 ml 1X ONCE 01/13/19 14:30 01/13/19 14:31 DC 01/13/19 14:37 4 ML Lidocaine HCl (Xylocaine-Mpf 2% Vial) 4 ml 1X ONCE 01/13/19 14:30 01/13/19 14:31 Cancel Mupirocin (Bactroban) 1 vaishnavi TID 01/13/19 15:00 01/13/19 14:37 1 VAISHNAVI Allergies Allergies Allergies Coded Allergies Type Severity Reaction Last Updated Verified aspirin Allergy Severe Hives 06/14/16 No Physical Exam Physical Exam Constitutional: Well developed, well nourished, no acute distress, non-toxic appearance. [] HENT: Normocephalic, atraumatic, oropharynx moist, nose normal. [] Eyes: Pupils equal, conjunctiva normal, no discharge. [] Neck: Normal range of motion, no tenderness, supple, no stridor. [] Cardiovascular: Heart rate regular rhythm, no murmur [] Lungs & Thorax: Bilateral breath sounds clear to auscultation- resp. equal/nonlabored Abdomen: Bowel sounds normal, soft, no tenderness, no masses, no pulsatile masses. Skin: Warm, dry. Multiple sores on lower abd- no sores on abd with fluctuation. Sores are indurated without surrounding erythema/cellulitis. Abscess rt side groin/suprapubic area with induration/center fluctuation- no labial tendernes s/abscess. 2+ bilat. femoral Back: No tenderness, no CVA tenderness. [] Extremities: No tenderness, no cyanosis, no clubbing, ROM intact, no edema. [] Neurologic: Alert and oriented X 3, normal motor function, normal sensory function, no focal deficits noted. [] Psychologic: Affect normal, judgement normal, mood normal. [] Current Patient Data Vital Signs Vital Signs Date Time Temp Pulse Resp B/P (MAP) Pulse Ox O2 Delivery O2 Flow Rate FiO2 01/13/19 14:29 18 97 Room Air 01/13/19 14:01 98.6 86 163/103 (123) 98.6 Lab Values Laboratory Tests Test 01/13/19 14:18 Urine Collection Type Unknown Urine Color Yellow Urine Clarity Clear Urine pH 6.0 Urine Specific [place] 1.020 Urine Protein Negative mg/dL (NEG-TRACE) Urine Glucose (UA) Negative mg/dL (NEG) Urine Ketones (Stick) Negative mg/dL (NEG) Urine Blood Moderate (NEG) Urine Nitrite Negative (NEG) Urine Bilirubin Negative (NEG) Urine Urobilinogen Dipstick 0.2 mg/dL (0.2 mg/dL) Urine Leukocyte Esterase Negative (NEG) Urine RBC 11-20 /HPF (0-2) Urine WBC 0 /HPF (0-4) Urine Squamous Epithelial Cells Mod /LPF Urine Bacteria 0 /HPF (0-FEW) Urine Mucus Mod /LPF EKG EKG [] Radiology/Procedures Radiology/Procedures Abscess Incision and Drainage with irrigation by me: 1450 Location: Rt groin/suprapubic area- no labial involvement Anesthesia: Local 1% Lidocaine 2mL Technique: #11 blade Irrigated. Disrupted loculations w/ instrumentation. Moderate amt purulent drainage from site- wound cx obtained. Irrigated wound with NS Packin/" plain- non adherent drsg applied Complications: Neurovascularly intact post procedure 48 hour wound check. Scar minimization instructions given. Course & Med Decision Making Course & Med Decision Making Pertinent Labs and Imaging studies reviewed. (See chart for details) Pt was evaluated in the ER for right-sided groin/suprapubic abscess- she has had history of multiple abscesses requiring I and D in the past. She had I&D done while in the ER and packing placed. Wound culture pending at time of discharge. Patient was provided with Bactroban ointment and had small amount applied to multiple sores on lower abdomen. Patient has seen Dr. Acevedo in the past and so she plans to follow-up with him if wound worsens and with concerns. Patient is being provided with prescription of Bactrim for antibiotic treatment of abscess. Patient aware that packing needed removed in 24-48 hours. Patient also voiced concerns of urinary frequency and so UA was obtained. No infection bed patient did have large amount of blood. On UA obtained in November she also had a large amount of blood at that time. Patient has had hysterectomy and so discussed need for follow-up with her primary care physician and or a urologist for repeat evaluation and further care on this. Will provide urology referral info on discharge paperwork. Patient has been nontoxic in appearance and is in no stress at time of discharge discussion. Patient's blood pressure was elevated however she has history of hypertension states she did not take her blood pressure medication today with plans to take as soon as she gets home. Patient was provided with pain medicine while in the ER and advised on continued use of [id number] Tylenol and/or ibuprofen and will be provided with small quantity of [place] tablets with discharge paperwork. Education provided on signs and symptoms to return to ER. Discharge instructions were discussed. Patient to follow-up with primary care physician if symptoms persist or with any concerns. Dragon Disclaimer Dragon Disclaimer This electronic medical record was generated, in whole or in part, using a voice recognition dictation system. Departure Departure Impression: Primary Impression: Abscess Additional Impression: Hematuria Disposition: 01 HOME, SELF-CARE Condition: STABLE Referrals: KALINA PARR MD (PCP) JEANINE FLOOD MD Patient Instructions: Abscess, Hematuria, Adult Additional Instructions: Warm compress to affected area every 3-4 hours for 20-30 minutes at a time. Tylenol and/or ibuprofen as needed for pain as directed on container. If taking the prescribed [place] avoid additional tylenol products. Packing needs to be removed in 24-48 hours that can be done by your primary care physician. If symptoms persist follow-up with Dr. Acevedo. Your urinalysis showed blood in your urine and this should be reevaluated by her primary care physician and/or a urologist. Scripts Hydrocodone/Apap 5-325 (NORCO 5-325 TABLET) 1 Each Tablet 1 TAB PO PRN Q6HRS PRN for PAIN, #10 TAB 0 Refills No driving or drinking alcohol while taking this medication Prov: JA MOLINA APRN 01/13/19 Sulfamethoxazole/Trimethoprim (BACTRIM DS TABLET) 1 Each Tablet 1 TAB PO BID, #14 TAB 0 Refills Prov: JA MOLINA APRN 01/13/19 Problem Qualifiers JA MOLINA APRN Jan 13, 2019 14:22
[2019-01-13 14:29] LABS: BILIRUBIN,URINE NEGATIVE (NEG); CLARITY,URINE CLEAR; COLOR,URINE YELLOW; NITRITE,URINE NEGATIVE (NEG); PROTEIN,URINE NEGATIVE (NEG-TRACE); UROBILINOGEN,URINE 0.2 mg/dL (0.2 mg/dL)
[2019-01-13] MEDS ORDERED: IBUPROFEN 400 MG TABLET. PO ONE (14:30)
[2019-01-13] MEDS ORDERED: LIDOCAINE 2% PF 2ML VIAL. INJ ONE (14:30)
[2019-01-13] MEDS ORDERED: HYDROcodone/APAP 5/325MG 1 TAB TABLET PO ONE (14:30)
[2019-01-13] MEDS ORDERED: LIDOCAINE 2% PF 5 ML VIAL. INJ ONE (14:30)
[2019-01-13 14:46] LABS: BACTERIA,URINE 0 /HPF (0-FEW); SQUAMOUS EPITHELIAL CELL,UR MOD /LPF; WBC,URINE 0 /HPF (0-4)
[2019-01-13] MEDS ORDERED: MUPIROCIN 2 % TOPICAL CREAM 30GM TUBE. TP SCH (15:00)
[2019-01-13] MEDS ORDERED: HYDR-3164 PO (15:07)
[2019-01-13] MEDS ORDERED: SULF1TAB24 PO (15:07)
[2019-01-13] MEDS ORDERED: DIPHTH,PERTUSS(ACELL),TET TOX 0.5 ML DISP.SYRIN. VAX IM ONE (16:00)
== END 2019-01-13 15:52 | disposition home or self-care (01) ==
LOC: ER 13:51
DX: L02.214 Cutaneous abscess of groin (principal); R31.9 Hematuria, unspecified; I10 Essential (primary) hypertension; Z88.6 Allergy status to analgesic agent; Z90.710 Acquired absence of both cervix and uterus
CPT/HCPCS: 10060; 81001; 87070; 99284; J2001

== ENCOUNTER 2019-03-10 14:56 | Emergency (ER) | payer OTHER ==
[~2019-03-10] VITALS: Ht 165.1 cm; Wt 91.7 kg
[~2019-03-10 14:56] MED LIST changes: +CEPH-264 PO; +HYDR-2761 PO
[2019-03-10 15:21] VITALS: BP 159/105
[2019-03-10] MEDS ORDERED: LIDOCAINE 2% 20 ML VIAL. IJ ONE (15:45)
[2019-03-10] MEDS ORDERED: DOXY100T PO (16:06)
--- NOTE | 2019-03-10 16:06 | PHYS DOC ---
Past Medical History Past Medical History: Hypertension, Other Additional Past Medical Histor: "heart murmur"; skin boils, HS Past Surgical History: Hysterectomy, Other Additional Past Surgical Histo: bilat axila surgery Additional Information: 1.5 ppd Alcohol Use: Occasionally Drug Use: None Adult General Chief Complaint Chief Complaint: SKIN RASH/ABSCESS HPI HPI Patient is a 53 year old female who presents for abscess to the left axillary region. The patient states that she gets these frequently at least once a month. She has seen dermatology. She says that she has started developing a scar tissue in her arms due to the frequency of the incision and drainages. Rates her pain as 10 out of 10 in severity and sharp. Review of Systems Review of Systems Constitutional: Denies fever or chills [] Eyes: Denies change in visual acuity, redness, or eye pain [] HENT: Denies nasal congestion or sore throat [] Respiratory: Denies cough or shortness of breath [] Cardiovascular: No additional information not addressed in HPI [] GI: Denies abdominal pain, nausea, vomiting, bloody stools or diarrhea [] : Denies dysuria or hematuria [] Musculoskeletal: Denies back pain or joint pain [] Integument: Reports 2 boils under left axilla. Neurologic: Denies headache, focal weakness or sensory changes [] Endocrine: Denies polyuria or polydipsia [] Complete systems were reviewed and found to be within normal limits, except as documented in this note. Current Medications Current Medications Current Medications Medications (Trade) Dose Ordered Sig/Gurmeet Start Time Stop Time Status Last Admin Dose Admin Acetaminophen (Tylenol) 500 mg 1X ONCE 03/10/19 16:30 03/10/19 16:31 Lidocaine HCl 20 ml 1X ONCE 03/10/19 15:45 03/10/19 15:50 DC 03/10/19 15:50 20 ML Allergies Allergies Allergies Coded Allergies Type Severity Reaction Last Updated Verified aspirin Allergy Severe Hives 06/14/16 No Physical Exam Physical Exam Constitutional: Well developed, well nourished, no acute distress, non-toxic appearance. [] HENT: Normocephalic, atraumatic, bilateral external ears normal, oropharynx moist, no oral exudates, nose normal. [] Eyes: PERRLA, EOMI, conjunctiva normal, no discharge. [] Neck: Normal range of motion, no tenderness, supple, no stridor. [] Skin: 2 boils under left axilla with no flatulence. Back: No tenderness, no CVA tenderness. [] Extremities: No tenderness, no cyanosis, no clubbing, ROM intact, no edema. [] Neurologic: Alert and oriented X 3, normal motor function, normal sensory function, no focal deficits noted. [] Psychologic: Affect normal, judgement normal, mood normal. [] Current Patient Data Vital Signs Vital Signs Date Time Temp Pulse Resp B/P (MAP) Pulse Ox O2 Delivery O2 Flow Rate FiO2 03/10/19 15:21 98.9 81 18 159/105 (123) 98 Room Air 98.9 EKG EKG [] Radiology/Procedures Radiology/Procedures [] Course & Med Decision Making Course & Med Decision Making Pertinent Labs and Imaging studies reviewed. (See chart for details) Discussed with patient the options of drainage are to put on antibiotic and see if it improves without drainage. Patient requested scripts for narcotics and narcotics before drainage. Discussed with patient on this is not standard practice and will not be doing this. Offered to use no evidence for the drainage however discussed with patient that I don't think the drainage is completely necessary as there is no fluctuance. She started felt quite a bit of scar tissue due to her history and she pictures of a more risk for more scar tissue. Will d/c on antibiotics. Dragon Disclaimer Dragon Disclaimer This electronic medical record was generated, in whole or in part, using a voice recognition dictation system. Departure Departure Impression: Primary Impression: Boil, axilla Disposition: 01 HOME, SELF-CARE Condition: STABLE Referrals: RAE VAUGHN MD (PCP) Additional Instructions: Thank you for visiting [facility]. We appreciate you trusting us with your care. If any additional problems come up don't hesitate to return to visit us. Please follow up with your primary care provider so they can plan additional care if needed and know about the problem that you had. If symptoms worsen come back to the Emergency Department. Any concerning symptoms that start such as chest pain, shortness of air, weakness or numbness on one side of the body, running high fevers or any other concerning symptoms return to the ER. You have been prescribed an antibiotic today to help fight your infection. Please take all of the antibiotic as directed. If after 48 hours the infection is not improving, please return for more care. If the infection worsens, return to ER for additional care. Scripts Doxycycline Hyclate (DOXYCYCLINE HYCLATE) 100 Mg Tablet 1 TAB PO BID for 10 Days, #20 TAB Prov: AMANUEL MEJIA APRN 03/10/19 Problem Qualifiers Primary Impression: Boil, axilla Laterality: left Qualified Codes: L02.422 - Furuncle of left axilla AMANUEL MEJIA APRN Mar 10, 2019 16:06
[2019-03-10] MEDS ORDERED: ACETAMINOPHEN 500 MG TABLET PO ONE (16:30)
== END 2019-03-10 16:11 | disposition home or self-care (01) ==
LOC: ER 14:56
DX: L02.412 Cutaneous abscess of left axilla (principal); I10 Essential (primary) hypertension; F17.200 Nicotine dependence, unspecified, uncomplicated; Z90.710 Acquired absence of both cervix and uterus; Z88.6 Allergy status to analgesic agent
CPT/HCPCS: 99283; J2001

== ENCOUNTER 2019-04-11 13:01 | Emergency (ER) | payer OTHER ==
[~2019-04-11] VITALS: Ht 165.1 cm; Wt 96.2 kg
[~2019-04-11 13:01] MED LIST changes: +DOXY100T PO
[2019-04-11 13:31] VITALS: BP 161/89
[2019-04-11] MEDS ORDERED: HYDROcodone/APAP 5/325MG 1 TAB TABLET PO ONE (14:45)
--- NOTE | 2019-04-11 15:47 | RAD ---
EXAM: PA, oblique and lateral views of the left wrist DATE: 04/11/2019 2:41 PM INDICATION: Left wrist pain after fall COMPARISON: No Prior FINDINGS/ IMPRESSION: Small ossification at the dorsal aspect of the proximal carpal row with moderate overlying soft tissue swelling is most suspicious for dorsal avulsion fracture likely triquetral. Electronically signed by: Davide Gonzalez MD (04/11/2019 3:44 PM) [facility]
[2019-04-11] MEDS ORDERED: HYDR-3164 PO (15:58)
--- NOTE | 2019-04-11 16:58 | PHYS DOC ---
Past Medical History Past Medical History: Hypertension, Other Additional Past Medical Histor: "heart murmur"; skin boils, HS (RACHAEL DURAN [employer] THREAD [employer]) Past Surgical History: Hysterectomy, Other Additional Past Surgical Histo: bilat axila surgery (RACHAEL DURAN THREAD CHECKER) Alcohol Use: Occasionally Drug Use: None (RACHAEL DURAN [employer]) Adult General Chief Complaint Chief Complaint: WRIST PAIN [facility] HPI Patient is a 54 year old female who presents with severe pain to her left wrist after she slipped and fell at work. She states that the pain and swelling have significantly worsened. The injury happened about two hours prior to arrival. She denies any other injury. (RACHAEL DURAN THREAD CHECKER) Review of Systems Review of Systems Constitutional: Denies fever or chills [] Respiratory: Denies cough or shortness of breath [] Cardiovascular: No additional information not addressed in HPI [] Musculoskeletal: See history of present illness Integument: Denies rash or skin lesions [] Neurologic: Denies headache, focal weakness or sensory changes [] Endocrine: Denies polyuria or polydipsia [] All other systems were reviewed and found to be within normal limits, except as documented in this note. (RACHAEL DURAN THREAD CHECKER) Current Medications Current Medications Current Medications Medications (Trade) Dose Ordered Sig/Gurmeet Start Time Stop Time Status Last Admin Dose Admin Acetaminophen/ Hydrocodone Bitart (Lortab 5/325) 1 tab 1X ONCE 04/11/19 14:45 04/11/19 14:46 DC 04/11/19 14:52 1 TAB (ALEJANDRA TERRELL MD) Allergies Allergies Allergies Coded Allergies Type Severity Reaction Last Updated Verified aspirin Allergy Severe Hives 06/14/16 No (ALEJANDRA TERRELL MD) Physical Exam Physical Exam Constitutional: Well developed, well nourished, no acute distress, non-toxic appearance. [] Cardiovascular:Heart rate regular rhythm, no murmur [] Lungs & Thorax: Bilateral breath sounds clear to auscultation [] Skin: Warm, dry, no erythema, no rash. [] Extremities: tenderness to the wrist with edema noted, no cyanosis, no clubbing, ROM decreased due to pain, ulcers and sensation are intact distal to injury Neurologic: Alert and oriented X 3, normal motor function, normal sensory function, no focal deficits noted. [] Psychologic: Affect normal, judgement normal, mood normal. [] (RACHAEL DURAN APRN) Current Patient Data Vital Signs Vital Signs Date Time Temp Pulse Resp B/P (MAP) Pulse Ox O2 Delivery O2 Flow Rate FiO2 04/11/19 14:52 Room Air 04/11/19 13:31 97.2 92 16 161/89 (113) 98 97.2 (ALEJANDRA TERRELL MD) EKG EKG [] (RACHAEL DURAN APRN) Radiology/Procedures Radiology/Procedures []PATIENT: LAWSON PLASCENCIA JACCOUNT: [id number]#: [id number] : 1965 LOCATION: ER AGE: 54 SEX: F EXAM STATUS: REG ER ORD. PHYSICIAN: RACHAEL DURAN APRN REASON: left wrist pain after fall at work PROCEDURE: WRIST 3V LEFT EXAM: PA, oblique and lateral views of the left wrist DATE: 04/11/2019 2:41 PM INDICATION: Left wrist pain after fall COMPARISON: No Prior FINDINGS/ IMPRESSION: Small ossification at the dorsal aspect of the proximal carpal row with moderate overlying soft tissue swelling is most suspicious for dorsal avulsion fracture likely triquetral. Electronically signed by: Davide Higuera MD (04/11/2019 3:44 PM) [facility] DICTATED and SIGNED BY: DAVIDE HIGUERA MD DATE: 04/11/19 1544 (RACHAEL DURAN APRN) Course & Med Decision Making Course & Med Decision Making Pertinent Labs and Imaging studies reviewed. (See chart for details) []The patient was placed in a gutter splint. She is to follow-up with orthopedics. She was given a prescription for small amount of [place] to help with pain control. She has been instructed not to drive or operate heavy machinery while taking this medication. (RACHAEL DURAN APRN) Course & Med Decision Making Staff Physician Addendum: I was working in the ER during the course of this patient's visit. I was available for consultation as needed, but I was not directly involved in the care of this patient. (ALEJANDRA TERRELL MD) Dragon Disclaimer Dragon Disclaimer This electronic medical record was generated, in whole or in part, using a voice recognition dictation system. (RACHAEL DURAN APRN) Departure Departure Impression: Primary Impression: Fracture, triquetral bone Disposition: HOME/RESIDENCE PRIOR TO ADM Condition: STABLE Referrals: OLGA ALMANZAR MD Patient Instructions: Wrist Fracture Additional Instructions: Keep the splint clean and dry. Follow up with orthopedics for further evaluation and management of your fracture. If worsening return to the emergency department. Scripts Hydrocodone/Apap 5-325 (NORCO 5-325 TABLET) 1 Each Tablet 1-2 TAB PO Q4-6HRS PRN for PAIN, #20 TAB Prov: RACHAEL DURAN APRN 04/11/19 RACHAEL DURAN APRN Apr 11, 2019 16:58 ALEJANDRA TERRELL MD Apr 12, 2019 16:18
== END 2019-04-11 16:18 | disposition home or self-care (01) ==
LOC: ER 13:01
DX: S62.112A Displaced fracture of triquetrum [cuneiform] bone, left wrist, initial encounter for closed fracture (principal); I10 Essential (primary) hypertension; Z90.710 Acquired absence of both cervix and uterus; Z88.6 Allergy status to analgesic agent; W01.0XXA Fall on same level from slipping, tripping and stumbling without subsequent striking against object, initial encounter; Y93.89 Activity, other specified; Y92.89 Other specified places as the place of occurrence of the external cause; Y99.8 Other external cause status
CPT/HCPCS: 29125; 73110; 99284

== ENCOUNTER 2019-04-13 19:00 | Emergency (ER) | payer OTHER ==
[~2019-04-13] VITALS: Ht 166.4 cm; Wt 96.2 kg
[2019-04-13 19:20] VITALS: BP 181/94
--- NOTE | 2019-04-13 21:35 | PHYS DOC ---
Past Medical History Past Medical History: Hypertension Additional Past Medical Histor: "heart murmur"; skin boils, HS Past Surgical History: Hysterectomy, Other Additional Past Surgical Histo: bilat axila surgery Alcohol Use: None Drug Use: None Adult General Chief Complaint Chief Complaint: UPPER EXTREMITY PAIN HPI HPI Patient is a 54 year old female who presents to [facility] CC of left shoulder pain. Pt says she fell 2 days ago and was seen in the ER and was diagnosed with a left wrist fracture. Patient was placed in a cast. Patient states that today her left shoulder also was pending and so she came for further evaluation. Patient states that she has not been able to follow up with orthopedics as that job claim number was not given to her and so the orthopedic office was waiting for his number. Patient states that at the number centimeters and she will see her PCP for this. Patient denies any new injury. Review of Systems Review of Systems Constitutional: Denies fever or chills [] Eyes: Denies change in visual acuity, redness, or eye pain [] HENT: Denies nasal congestion or sore throat [] Respiratory: Denies cough or shortness of breath [] Cardiovascular: No additional information not addressed in HPI [] GI: Denies abdominal pain, nausea, vomiting, bloody stools or diarrhea [] : Denies dysuria or hematuria [] Musculoskeletal: Complains of pain in left shoulder All other systems were reviewed and found to be within normal limits, except as documented in this note. Allergies Allergies Allergies Coded Allergies Type Severity Reaction Last Updated Verified aspirin Allergy Severe Hives 06/14/16 No Physical Exam Physical Exam Constitutional: Well developed, well nourished, no acute distress, non-toxic appearance. [] HENT: Normocephalic, atraumatic Eyes: PERRLA, EOMI Respiratory: No respiratory distress Back: No tenderness, no CVA tenderness. [] Extremities: Tenderness in the left shoulder. He has a cast in place in the left wrist and lower arm. Neurovascularly intact. Cap refill normal. Patient able to move her fingers without difficulty. Neurologic: Alert and oriented X 3, Psychologic: Affect normal, judgement normal, mood normal. [] Current Patient Data Vital Signs Vital Signs Date Time Temp Pulse Resp B/P (MAP) Pulse Ox O2 Delivery O2 Flow Rate FiO2 10/21/19 19:20 98.7 94 19 181/94 (123) 95 Room Air 98.7 EKG EKG [] Radiology/Procedures Radiology/Procedures Ordered x-ray of the left shoulder. Impressions: X-ray shows no acute fractures. Course & Med Decision Making Course & Med Decision Making Pertinent Imaging studies reviewed. (See chart for details) X-ray of the left shoulder does not show any acute fractures. Patient's left upper extremity is neurovascularly intact. Discussed results and plan of care with patient. Discussed results and plan of care with patient. Patient is instructed to follow up with PCP in one to 2 days. Appropriate discharge instructions given to patient to return to the ED or to seek immediate medical evaluation. Dragon Disclaimer Dragon Disclaimer This electronic medical record was generated, in whole or in part, using a voice recognition dictation system. Departure Departure Impression: Primary Impression: Strain of shoulder, left Disposition: 01 HOME, SELF-CARE Condition: STABLE Referrals: RAE VAUGHN MD (PCP) APPLE STONE DO Apr 13, 2019 21:35
--- NOTE | 2019-04-13 23:31 | RAD ---
Three-view left shoulder radiographs 04/13/2019 CLINICAL HISTORY: Left shoulder pain for 3 days post fall. AP internal and external rotation and transscapular digital radiographs of the left shoulder were obtained. No fracture or dislocation of the left shoulder is seen. Mild degenerative changes are seen involving the left AC joint and left glenohumeral joint. IMPRESSION: No fracture or dislocation of the left shoulder is seen. Electronically signed by: Rasheed Rees MD (04/13/2019 11:28 PM) [facility]
== END 2019-04-13 21:42 | disposition home or self-care (01) ==
LOC: ER 19:00
DX: S46.912A Strain of unspecified muscle, fascia and tendon at shoulder and upper arm level, left arm, initial encounter (principal); I10 Essential (primary) hypertension; Z90.710 Acquired absence of both cervix and uterus; Z88.6 Allergy status to analgesic agent; W18.39XA Other fall on same level, initial encounter; Y93.89 Activity, other specified; Y92.89 Other specified places as the place of occurrence of the external cause; Y99.8 Other external cause status
CPT/HCPCS: 73030; 99284

== ENCOUNTER → 2020-09-19 | Outpatient (CLI) | payer OTHER ==
[2019-06-22 11:00] VITALS: BP 136/90
[~2020-09-19] MED LIST changes: +BUPR100T8 PO; +DOXY100C2 PO; +GUAI120L35 PO; +IPRA3AMP29 NEB; +LINZESS145 MCG PO; +MECL-75 PO; -MECL25TA3 PO; +MONT10TA49 PO; +NIFE60TA90 PO; +QUET300T5 PO; +TRAZ-123 PO
--- NOTE | 2020-09-20 04:05 | RAD ---
XR CHEST 2V History: Reason: BRONCHITIS. Comparison: Two-view chest June 20, 2019. Findings: The cardiomediastinal silhouette is normal. Pulmonary vasculature is normal. The lungs are clear. No pleural effusion or pneumothorax is seen. There is no acute bone abnormality. IMPRESSION: No acute cardiopulmonary process. Electronically signed by: Herminio Castellanos MD (09/20/2020 4:02 AM) [facility]
== END ==
LOC: RAD 11:47
PROVIDERS: ATTEND Internal Medicine Pulmonary Disease
DX: J40 Bronchitis, not specified as acute or chronic (principal)
CPT/HCPCS: 71046

== ENCOUNTER → 2020-09-30 | Outpatient (CLI) | payer OTHER ==
[2019-06-22 11:00] VITALS: BP 136/90
--- NOTE | 2020-09-30 11:59 | RAD ---
CT THORAX WO INDICATION: lung nodule COMPARISON STUDY: Radiograph 09/19/2020. TECHNIQUE: Unenhanced axial images were obtained through the lungs and upper abdomen. Coronal and sa gittal multiplanar reconstructions were also obtained. PQRS compliance statement: One or more of the following individualized dose reduction techniques were utilized for this examinat ion: 1. Automated exposure control 2. Adjustment of the mA and/or kV according to patient size 3. Use of iterative reconstruction technique FINDINGS: Lungs and Airways: No pulmonary mass or consolidation. Bibasilar dependent atelectasis. Right upper l obe indeterminate nodule (series 8 image 48). Calcified pulmonary granuloma. Bronchial wall thickenin g. Trace upper lobe emphysematous changes. Pleura: The pleural spaces are normal. Heart and Mediastinum: The visualized thyroid gland is normal in size and attenuation. No axillary or supraclavicular lymphadenopathy. No mediastinal, hilar or retrocrural lymphadenopathy. Normal cardia c size. No pericardial effusion. Coronary artery atherosclerotic disease. Mitral annular calcificatio n. The great vessels of the thorax are normal. Abdomen: The visualized abdominal organs demonstrate no abnormality. Bones and Soft Tissues: The visualized skeletal structures and soft tissues of the chest wall are wit hin normal limits. IMPRESSION: Indeterminate right upper lobe 5 mm nodule. Consider optional 12 month follow-up chest CT to assess s tability. Electronically signed by: Redd Briceno MD (09/30/2020 11:57 AM) [id number]
== END ==
LOC: CT 08:45
PROVIDERS: ATTEND Internal Medicine Pulmonary Disease
DX: R91.1 Solitary pulmonary nodule (principal); J98.11 Atelectasis
CPT/HCPCS: 71250

== ENCOUNTER → 2020-10-17 | Outpatient (CLI) | payer OTHER ==
[2019-06-22 11:00] VITALS: BP 136/90
[~2020-10-17] MED LIST changes: +REGADENOSON 0.4 MG/5 ML DISP.SYRIN. IV ONE
--- NOTE | 2020-10-17 13:05 | RAD ---
MR#: [id number] Date of Study: 10/17/2020 Ordering Physician: TEJAL DAMIAN, Referring Physician: QUYEN GERBER Tech: EUFEMIA Zeng APPROVED REPORT Test Type: Pharmacological Stress Nurse/Tech: Stefani Da Silva RN Test Indications: palpitations, pre-op clearance Cardiac History: COPD, HTN, smoker Medications: See Electronic Medical Record Medical History: See Electronic Medical Record Resting ECG: SR Resting Heart Rate: 82 bpm Resting Blood Pressure: 138/77mmHg Pretest Chest Pain: None Nurse/Tech Notes Lungs CTA, S1S2 Consent: The procedure was explained to the patient in lay terms. Informed consent was witnessed. Waldo eout was entered into [employer]. History and Stress Test performed by EUFEMIA Zeng Pharm. Details Pharmacologic stress testing was performed using 0.4mg per 5ml of regadenoson given intravenously ove r 7-10 seconds. Stress Symptoms Dyspnea POST EXERCISE Reason for Termination: Infusion complete Max HR: 105 bpm Max Blood Pressure: 136/67mmHg Blood Pressure response to exercise: Normal blood pressure response during stress. Heart Rate response to exercise: normal response Chest Pain: No. Arrhythmia: Yes. PVC ST Change: No. INTERPRETATION Stress EKG Conclusion: Baseline EKG showed sinus rhythm. No ischemic changes at peak stress. No arr hythmias. Imaging Protocol IMAGE PROTOCOL: Rest Tc-99m/stress Tc-99m 1 day Rest: Stress: Viability: Radiopharm.Tc99m ApvqlzsjbXs98r Sestamibi Ivpn42fOi 32.5mCi Duration 15min. 10min. Img Date 10/17/2020 10/17/2020 Inj-Img [id number]. 60min. Rest Admin Site:IV - Right AntecubitalAdministrator:EUFEMIA Zeng Stress Admin Site: IV - Right AntecubitalAdministrator: EUFEMIA Zeng STRESS DATA End Diast. Vol.94.0mlAv. Heart Rate92.0bpm End Syst. Vol.25.0mlCO Index BSA0.0L/min Myocardial Nzhh494.0gEject. Iqstqqea93.0% Stress Rates Pk. Fill Rate4.11EDV/secLVtime Pk. Fill 195.86msec Pk. Empty Rate6.00ESV/secLVtime Pk. Eject96.00msec /3 Pk. Fill0.89EDV/sec Stress Scores Regional WT1.00Summed WT6.00 Regional WM0.00Summed WM0.00 Study quality was good. Left Ventricular size was Normal at Rest and Stress. Lung uptake was . Left Ventricular ejection fraction is 70%. The rest and stress images show normal perfusion, normal contraction and thickening. LV Perf. Quant 17 Seg. SSS2.00 17 Seg. SRS1.00 17 Seg. SDS2.00 Stress Defect Extent (% LAD)0.00Rest Defect Extent (% LAD)0.60Rev. Defect Extent (% LAD)0.00 Stress Defect Extent (% LCX) 0.00Rest Defect Extent (% LCX)0.00Rev. Defect Extent (% LCX)0.00 Stress Defect Extent (% RCA)0.00Rest Defect Extent (% RCA)0.00Rev. Defect Extent (% RCA)0.00 Stress Defect Extent (% CONOR)0.00Rest Defect Extent (% CONOR)0.20Rev. Defect Extent (% CONOR)0.00 Conclusion 1. Regadenoson cardioisotope stress test did not show any evidence of ischemia or infarct. 2. Normal left ventricular systolic function with ejection fraction calculated at 70%. 3. Low risk for cardiac events. Signed by : Lee Block, Electronically Approved : 10/17/2020 13:05:29
--- NOTE | 2020-10-18 08:51 | CARD ---
MR#: [id number] Date of Study: 10/17/2020 Ordering Physician: TEJAL DAMIAN, Referring Physician: TEJAL DAMIAN, Tech: Rosalie Maguire, [facility] APPROVED REPORT EXAM: Two-dimensional and M-mode echocardiogram with Doppler and color Doppler. Other Information Quality : AverageHR: 84bpm INDICATION Dyspnea RISK FACTORS Hypertension Smoking 2D DIMENSIONS RVDd2.7 (2.9-3.5cm)Left Atrium(2D)2.9 (1.6-4.0cm) IVSd1.0 (0.7-1.1cm)Aortic Root(2D)3.4 (2.0-3.7cm) LVDd5.3 (3.9-5.9cm)LVOT Diameter2.0 (1.8-2.4cm) PWd1.1 (0.7-1.1cm)LVDs2.5 (2.5-4.0cm) FS (%) 52.7 %SV113.4 ml LVEF(%)83.4 (>50%) Aortic Valve AoV Peak Ishan.154.9cm/sAoV VTI25.9cm AO Peak GR.9.6mmHgLVOT Peak Ishan.133.0cm/s LVOT VTI 23.77cmAO Mean GR.5mmHg SIMÓN (VMAX)2.15ct7BPZ (VTI)3.02cm2 AI P 1/2 Xpkk172jr Mitral Valve MV E Grfqrtlm07.9cm/sMV DECEL LEXF404qp MV A Uzsewsbf056.2cm/sMV KVN94dv E/A Ratio0.8MVA (PHT)2.41cm2 TDI E/Lateral E'12.0E/Medial E'11.3 Pulmonary Valve PV Peak Ijsoqkwi587.2cm/sPV Peak Grad.4mmHg Pulmonary Vein S1 Mlngssbw79.1cm/sD2 Jetbvski25.4cm/s PVa [id number] LEFT VENTRICLE The left ventricle is normal size. There is mild concentric left ventricular hypertrophy. The left ve ntricular systolic function is normal. The Ejection Fraction is 60-65%. There is normal LV segmental wall motion. Transmitral Doppler flow pattern is Grade I-abnormal relaxation pattern. RIGHT VENTRICLE The right ventricle is normal size. There is normal right ventricular wall thickness. The right ventr icular systolic function is normal. ATRIA The left atrium size is normal. The right atrium size is normal. The interatrial septum is intact wit h no evidence for an atrial septal defect or patent foramen ovale as noted on 2-D or Doppler imaging. AORTIC VALVE The aortic valve is normal in structure and function. Doppler and Color Flow revealed mild aortic reg urgitation. Calculated aortic valve area is 2.80 cm2 with maximum pressure gradient of 11 mmHg and me an pressure gradient of 6 mmHg. MITRAL VALVE The mitral valve is normal in structure and function. There is no evidence of mitral valve prolapse. There is no mitral valve stenosis. Doppler and Color-flow revealed trace mitral regurgitation. TRICUSPID VALVE The tricuspid valve is normal in structure and function. Doppler and Color Flow revealed no tricuspid valve regurgitation noted. There is no tricuspid valve stenosis. PULMONIC VALVE The pulmonic valve is not well visualized. Doppler and Color Flow revealed no pulmonic valvular regur gitation. GREAT VESSELS The aortic root is normal in size. The IVC is normal in size and collapses >50% with inspiration. PERICARDIAL EFFUSION There is no evidence of significant pericardial effusion. Critical Notification Critical Value: No <Conclusion> The left ventricular systolic function is normal. The Ejection Fraction is 60-65%. There is normal LV segmental wall motion. Transmitral Doppler flow pattern is Grade I-abnormal relaxation pattern. Mild aortic regurgitation. Trace mitral regurgitation. There is no evidence of significant pericardial effusion. Signed by : Lee Block, Electronically Approved : 10/18/2020 08:50:39
== END ==
LOC: NM 08:26
PROVIDERS: ATTEND Internal Medicine Cardiovascular Disease
DX: I35.1 Nonrheumatic aortic (valve) insufficiency (principal); I51.7 Cardiomegaly; Z87.891 Personal history of nicotine dependence
CPT/HCPCS: 78452; 93017; 93306; A9500; J2785

== ENCOUNTER 2020-12-11 00:41 | Observation (INO) | payer OTHER ==
[~2020-12-11] VITALS: Ht 165.1 cm; Wt 99.6 kg
[~2020-12-11 00:41] MED LIST changes: -REGADENOSON 0.4 MG/5 ML DISP.SYRIN. IV ONE
[2020-12-11] MEDS ORDERED: NITROGLYCERIN SUBLINGUAL 0.4 MG BOTTLE OF 25. SL PRN ×2 (01:00→02:45)
--- NOTE | 2020-12-11 01:01 | ED.ADGEN ---
Past Medical History Past Medical History: Bronchitis, Hypertension Additional Past Medical Histor: "heart murmur"; skin boils, HS Past Surgical History: Hysterectomy, Other Additional Past Surgical Histo: bilat axila surgery Smoking Status: Current Every Day Smoker Alcohol Use: None Drug Use: None General Adult HPI: HPI: Patient is a 55 year old female coming in via EMS for chest pain starting about 30 minutes prior to arrival. Patient states she just got out of the bath and was getting right upper self-esteem which. When she went discharged the refrigerator door with her right hand started feeling pain that she described as heaviness to her left arm this then radiated up her chest. Patient states over the past few days she has been a little bit of dyspnea with exertion, nausea and lightheadedness. Patient denies any prior heart conditions but has a family history of heart disease and siblings. Has a history of hypertension and mild COPD. Patient continues to smoke cigarettes daily. Patient states she was diagnosed with COVID-19 at in June and has not had her vaccinations. Review of Systems: Review of Systems: All other systems within normal limits except for as noted in the HPI Current Medications: Current Medications Medications (Trade) Dose Ordered Sig/[place] Start Time Stop Time Status Last Admin Dose Admin Acetaminophen (Tylenol) 650 mg PRN Q4HRS PRN 12/11/20 02:45 12/12/20 02:44 Levofloxacin (Levaquin) 750 mg 1X ONCE 12/11/20 03:30 12/11/20 03:31 DC 12/11/20 03:35 750 MG Morphine Sulfate (Morphine Sulfate) 4 mg PRN Q2HR PRN 12/11/20 02:45 12/12/20 02:44 12/11/20 02:48 4 MG Nitroglycerin (Nitrostat) 0.4 mg PRN Q5MIN PRN 12/11/20 02:45 12/12/20 02:44 Ondansetron HCl (Zofran) 4 mg PRN Q8HRS PRN 12/11/20 02:45 12/12/20 02:44 Allergies: Allergies: Allergies Coded Allergies Type Severity Reaction Last Updated Verified aspirin Allergy Severe Hives 06/14/16 No Physical Exam: PE: Constitutional: Well developed, well nourished, no acute distress, non-toxic appearance. [] HENT: Normocephalic, atraumatic, bilateral external ears normal, nose normal. [] Eyes: PERRLA, conjunctiva normal, no discharge. [] Neck: No rigidity, supple, no stridor. [] Cardiovascular: Regular rate and rhythm, brisk cap refill [] Lungs & Thorax: Non labored symmetric respirations, no tachypnea or respiratory distress [] Abdomen: Soft, nondistended. Skin: Warm, dry, no erythema, no rash. [] Back: Unremarkable Extremities: No deformities, range of motion grossly intact, no lower extremity edema [] Neurologic: Alert and oriented X 3, no focal deficits noted. [] Psychologic: Affect normal, judgement normal, mood normal. [] Current Patient Data: Labs: Laboratory Tests Test 12/11/20 00:55 12/11/20 02:20 White Blood Count 11.0 x10^3/uL (4.0-11.0) Red Blood Count 4.84 x10^6/uL (3.50-5.40) Hemoglobin 13.0 g/dL (12.0-15.5) Hematocrit 39.9 % (36.0-47.0) Mean Corpuscular Volume 82 fL (79-100) Mean Corpuscular Hemoglobin 27 pg (25-35) Mean Corpuscular Hemoglobin Concent 33 g/dL (31-37) Red Cell Distribution Width 15.0 % (11.5-14.5) H Platelet Count 240 x10^3/uL (140-400) Neutrophils (%) (Auto) 57 % (31-73) Lymphocytes (%) (Auto) 33 % (24-48) Monocytes (%) (Auto) 7 % (0-9) Eosinophils (%) (Auto) 1 % (0-3) Basophils (%) (Auto) 1 % (0-3) Neutrophils # (Auto) 6.3 x10^3/uL (1.8-7.7) Lymphocytes # (Auto) 3.6 x10^3/uL (1.0-4.8) Monocytes # (Auto) 0.8 x10^3/uL (0.0-1.1) Eosinophils # (Auto) 0.1 x10^3/uL (0.0-0.7) Basophils # (Auto) 0.1 x10^3/uL (0.0-0.2) Prothrombin Time 13.8 SEC (11.7-14.0) Prothrombin Time INR 1.1 (0.8-1.1) D-Dimer (Chhaya) 0.46 ug/mlFEU (0.00-0.50) Sodium Level 146 mmol/L (136-145) H Potassium Level 3.9 mmol/L (3.5-5.1) Chloride Level 109 mmol/L (98-107) H Carbon Dioxide Level 23 mmol/L (21-32) Anion Gap 14 (6-14) Blood Urea Nitrogen 12 mg/dL (7-20) Creatinine 0.6 mg/dL (0.6-1.0) Estimated GFR (Cockcroft-Gault) 125.1 BUN/Creatinine Ratio 20 (6-20) Glucose Level 93 mg/dL (70-99) Calcium Level 8.9 mg/dL (8.5-10.1) Magnesium Level 2.1 mg/dL (1.8-2.4) Total Bilirubin 0.2 mg/dL (0.2-1.0) Aspartate Amino Transferase (AST) 11 U/L (15-37) L Alanine Aminotransferase (ALT) 13 U/L (14-59) L Alkaline Phosphatase 92 U/L (46-116) Troponin I Quantitative < 0.017 ng/mL (0.000-0.055) UO-Ccv-W-Type Natriuretic Peptide 206 pg/mL (0-124) H Total Protein 6.6 g/dL (6.4-8.2) Albumin 3.8 g/dL (3.4-5.0) Albumin/Globulin Ratio 1.4 (1.0-1.7) Lipase 47 U/L (73-393) L Urine Collection Type Unknown Urine Color Yellow Urine Clarity Clear Urine pH 6.5 (<5.0-8.0) Urine Specific [place] 1.020 (1.000-1.030) Urine Protein Negative mg/dL (NEG-TRACE) Urine Glucose (UA) Negative mg/dL (NEG) Urine Ketones (Stick) Negative mg/dL (NEG) Urine Blood Moderate (NEG) Urine Nitrite Negative (NEG) Urine Bilirubin Negative (NEG) Urine Urobilinogen Dipstick 1.0 mg/dL (0.2 mg/dL) Urine Leukocyte Esterase Negative (NEG) Urine RBC 20-40 /HPF (0-2) Urine WBC 1-4 /HPF (0-4) Urine Squamous Epithelial Cells Mod /LPF Urine Bacteria Few /HPF (0-FEW) Urine Mucus Mod /LPF Urine Opiates Screen Neg (NEG) Urine Methadone Screen Neg (NEG) Urine Barbiturates Neg (NEG) Urine Phencyclidine Screen Neg (NEG) Urine Amphetamine/Methamphetamine Neg (NEG) Urine Benzodiazepines Screen Neg (NEG) Urine Cocaine Screen Pos (NEG) Urine Cannabinoids Screen Neg (NEG) Urine Ethyl Alcohol Neg (NEG) Laboratory Tests 12/11/20 00:55 Laboratory Tests 12/11/20 00:55 Vital Signs: Vital Signs Date Time Temp Pulse Resp B/P (MAP) Pulse Ox O2 Delivery O2 Flow Rate FiO2 12/11/20 02:48 97 12/11/20 02:47 84 18 136/72 (93) Room Air 12/11/20 00:45 98.6 98.6 EKG: EK: Sinus rhythm, heart rate 89 bpm, normal axis, no ectopy, normal intervals, no change when compared to ECG from 12-01-18 0128: Sinus rhythm, heart rate 80 bpm, grossly unchanged from previous 0201: Sinus rhythm, heart status minute, no change from previous. [] Heart Score: C/O Chest Pain: Yes HEART Score for Chest Pain: HEART Score for Chest Pain Response (Comments) Value History Moderately Suspicious 1 ECG Nonspecific Repolarizatio 1 Age >45 - < 65 1 Risk Factors 1 or 2 Risk Factors 1 Troponin < Normal Limit 0 Total 4 Risk Factors: Risk Factors: DM, Current or recent (<one month) smoker, HTN, HLP, family history of CAD, obesity. Risk Scores: Score 0 - 3: 2.5% MACE over next 6 weeks - Discharge Home Score 4 - 6: 20.3% MACE over next 6 weeks - Admit for Clinical Observation Score 7 - 10: 72.7% MACE over next 6 weeks - Early Invasive Strategies Radiology/Procedures: Radiology/Procedures: [facility] [address] [place], [place] [id number] IMAGING REPORT Signed PATIENT: LAWSON PLASCENCIA ACCOUNT: [id number] : 1965 LOCATION: ER AGE: 55 SEX: F EXAM STATUS: REG ER ORD. PHYSICIAN: JAVIER MORALES MD REASON: chest pain PROCEDURE: PORTABLE CHEST 1V EXAMINATION: XR CHEST 1V CLINICAL HISTORY: Chest pain EXAM DATE/TIME: 12/11/2020 1:03 AM COMPARISON: 09/19/2020 FINDINGS: Lines, Tubes, and Devices: None. Cardiomediastinal Silhouette: Normal heart size. Lungs and Pleura: Increased interstitial opacities in the left greater than right lower lung zones. No evidence of pleural effusion. Pulmonary vasculature unremarkable. Bones and Soft Tissues: No acute osseous abnormality. IMPRESSION: Increased interstitial opacities in the left greater than right lower lung zones. Electronically signed by: Christophe Tinoco DO (12/11/2020 2:22 AM) [facility] DICTATED and SIGNED BY: CHRISTOPHE TINOCO DO DATE: 12/11/20 [id number] [] Course & Med Decision Making: Course & Med Decision Making Pertinent Labs and Imaging studies reviewed. (See chart for details) [] Dragon Disclaimer: Dragon Disclaimer: This electronic medical record was generated, in whole or in part, using a voice recognition dictation system. Departure Departure Impression: Primary Impression: Chest pain Additional Impression: LLL pneumonia Disposition: ADMITTED INPATIENT Condition: STABLE Referrals: RAE VAUGHN MD (PCP) Problem Qualifiers JAVIER MORALES MD Dec 11, 2020 01:01
[2020-12-11 01:16] LABS: BASO # 0.1 x10^3/uL (0.0-0.2); BASO % 1 % (0-3); EOS # 0.1 x10^3/uL (0.0-0.7); EOS % 1 % (0-3); HEMATOCRIT 39.9 % (36.0-47.0); LYMPH # 3.6 x10^3/uL (1.0-4.8); LYMPH % 33 % (24-48); MEAN CORPUSCULAR HEMOGLOBIN 27 pg (25-35); MEAN CORPUSCULAR HGB CONC 33 g/dL (31-37); MEAN CORPUSCULAR VOLUME 82 fL (79-100); MONO # 0.8 x10^3/uL (0.0-1.1); MONO % 7 % (0-9); NEUT # 6.3 x10^3/uL (1.8-7.7); NEUT % 57 % (31-73); PLATELET COUNT 240 x10^3/uL (140-400); RED BLOOD COUNT 4.84 x10^6/uL (3.50-5.40)
[2020-12-11 01:24] LABS: CALCIUM 8.9 mg/dL (8.5-10.1); CREATININE 0.6 mg/dL (0.6-1.0); GFR 125.1; POTASSIUM 3.9 mmol/L (3.5-5.1)
[2020-12-11 01:26] LABS: PROTHROMBIN TIME PATIENT 13.8 SEC (11.7-14.0)
[2020-12-11 01:30] LABS: ALBUMIN 3.8 g/dL (3.4-5.0); ALBUMIN/GLOBULIN RATIO 1.4 (1.0-1.7); MAGNESIUM 2.1 mg/dL (1.8-2.4); TOTAL BILIRUBIN 0.2 mg/dL (0.2-1.0); TOTAL PROTEIN 6.6 g/dL (6.4-8.2)
[2020-12-11 01:35] LABS: D-DIMER 0.46 ug/mlFEU (0.00-0.50)
--- NOTE | 2020-12-11 02:24 | RAD ---
EXAMINATION: XR CHEST 1V CLINICAL HISTORY: Chest pain EXAM DATE/TIME: 12/11/2020 1:03 AM COMPARISON: 09/19/2020 FINDINGS: Lines, Tubes, and Devices: None. Cardiomediastinal Silhouette: Normal heart size. Lungs and Pleura: Increased interstitial opacities in the left greater than right lower lung zones. N o evidence of pleural effusion. Pulmonary vasculature unremarkable. Bones and Soft Tissues: No acute osseous abnormality. IMPRESSION: Increased interstitial opacities in the left greater than right lower lung zones. Electronically signed by: Christophe Morin DO (12/11/2020 2:22 AM) [facility]
[2020-12-11 02:30] LABS: BILIRUBIN,URINE NEGATIVE (NEG); CLARITY,URINE CLEAR; COLOR,URINE YELLOW; NITRITE,URINE NEGATIVE (NEG); PH,URINE 6.5 (<5.0-8.0); PROTEIN,URINE NEGATIVE (NEG-TRACE)
[2020-12-11 02:37] LABS: BARBITURATES NEG (NEG); BENZODIAZEPINES NEG (NEG); CANNABINOIDS NEG (NEG); COCAINE POS (NEG); METHADONE NEG (NEG); OPIATES NEG (NEG); PHENCYCLIDINE NEG (NEG)
[2020-12-11] MEDS ORDERED: MORPHINE SULFATE 4 MG/ML VIAL. IV PRN (02:45)
[2020-12-11] MEDS ORDERED: ONDANSETRON PF 4 MG/2 ML VIAL. IV PRN ×2 (02:45→12:15)
[2020-12-11] MEDS ORDERED: ACETAMINOPHEN 325 MG TABLET. PO PRN ×2 (02:45→12:15)
[2020-12-11 02:53] LABS: AMPHETAMINE/METHAMPHETAMINE NEG (NEG)
[2020-12-11 02:58] LABS: BACTERIA,URINE FEW /HPF (0-FEW); RBC,URINE 20-40 /HPF (0-2)
--- NOTE | 2020-12-11 03:54 | EKG ---
[facility] [address] [place] [address] Test Date: 2020-12-11 Test Time: 01:28:20 Pat Name: LAWSON PLASCENCIA Department: Room: Gender: F [address] Vendor: : 1965 Requested By: JAVIER MORALES Order Number: [id number] Reading MD: Measurements Intervals [place] Rate: 81 P: 62 MD: 150 QRS: 54 QRSD: 102 T: 91 QT: 402 QTc: 467 Interpretive Statements SINUS RHYTHM LEFT ATRIAL ABNORMALITY ABNORMAL ECG RI6.02 Compared to ECG 12/11/2020 00:49:35 T-wave abnormality no longer present Possible ischemia no longer present
--- NOTE | 2020-12-11 03:54 | EKG ---
[facility] [address] [place] [address] Test Date: 2020-12-11 Test Time: 02:01:43 Pat Name: LAWSON PLASCENCIA Department: Room: Gender: F Genetic Counsellor: : 1965 Requested By: JAVIER MORALES Order Number: [id number] Reading MD: Measurements Intervals [place] Rate: 77 P: 60 WV: 146 QRS: 52 QRSD: 102 T: 83 QT: 394 QTc: 448 Interpretive Statements SINUS RHYTHM LEFT ATRIAL ABNORMALITY ABNORMAL ECG RI6.02 Compared to ECG 12/11/2020 01:28:20 No significant changes
--- NOTE | 2020-12-11 04:01 | EKG ---
[facility] [address] [place] [address] Test Date: 2020-12-11 Test Time: 00:49:35 Pat Name: LAWSON PLASCENCIA Department: Room: Gender: F [employer]: : 1965 Requested By: JAVIER MORALES Order Number: [id number] Reading MD: Measurements Intervals [place] Rate: 89 P: 63 [place]: 140 QRS: 56 QRSD: 108 T: 120 QT: 398 QTc: 485 Interpretive Statements SINUS RHYTHM LEFT ATRIAL ABNORMALITY QRS(T) CONTOUR ABNORMALITY CONSIDER INFERIOR MYOCARDIAL DAMAGE ST & T ABNORMALITY, CONSIDER HIGH LATERAL ISCHEMIA OR LEFT VENTRICULAR STRAIN ABNORMAL ECG RI6.02 No previous ECG available for comparison
[2020-12-11 09:00] VITALS: BP 157/85
[2020-12-11] MEDS ORDERED: LOSA-73 PO (09:23)
[2020-12-11] MEDS ORDERED: BREO ELLIPTA 21 EACH IH (09:26)
[2020-12-11] MEDS ORDERED: VENTOLIN HFA18 GM INH (09:26)
[2020-12-11] MEDS ORDERED: FLUT1BLS15 IH (09:41)
[2020-12-11] MEDS ORDERED: LINA72CA PO (09:43)
--- NOTE | 2020-12-11 10:38 | PDOC2 ---
CONSULT Date of Consult Date of Consult DATE: 12/11/20 TIME: 10:38 Reason for Consult Reason for Consult: Chest pain Referring Physician Referring Physician: Dr. Ware Identification/Chief Complaint Chief Complaint Chest pain Source Source: Chart review, Patient History of Present Illness Reason for Visit: 55-year-old female without any previous cardiac history presented with chest pain that actually started as aching pain in her left arm and radiated across her chest that she described as pressure-like sensation, 7/10 severity associated with mild shortness of breath. She has baseline dyspnea on exertion secondary to COPD and stated that she ran out of her medications few days ago. She denied any orthopnea/PND, palpitations or syncope. Her chest pain resolved in route to ED and is currently chest pain-free. She has family history of coronary disease and smokes 1 pack of cigarettes daily. Of note, she had a recent 2D echo and Lexiscan nuclear stress test for ischemic evaluation and was told both of them were normal. Past Medical History Cardiovascular: HTN Pulmonary: Bronchitis Psych: No pertinent hx Rheumatologic: No pertinent hx Infectious disease: No pertinent hx Renal/: No pertinent hx Endocrine: No pertinent hx Past Surgical History Past Surgical History: Hysterectomy, Other Family History Family History: Diabetes, Hypertension Social History ALCOHOL: none Drugs: None, Cocaine Current Problem List Problem List Problems Medical Problems: (1) Chest pain Status: Acute (2) LLL pneumonia Status: Acute Current Medications Current Medications Current Medications Nitroglycerin (Nitrostat) 0.4 mg PRN Q5MIN PRN SL CP RATING > 1/10 Last administered on 12/11/20at 01:36; Start 12/11/20 at 01:00; Stop 12/11/20 at 02:40; Status DC Ondansetron HCl (Zofran) 4 mg PRN Q8HRS PRN IV NAUSEA/VOMITING 1ST CHOICE; Start 12/11/20 at 02:45; Stop 12/12/20 at 02:44 Morphine Sulfate (Morphine Sulfate) 4 mg PRN Q2HR PRN IV SEVERE PAIN 7-10 Last administered on 12/11/20at 02:48; Start 12/11/20 at 02:45; Stop 12/12/20 at 02:44 Acetaminophen (Tylenol) 650 mg PRN Q4HRS PRN PO FEVER > 100.3'F; Start 12/11/20 at 02:45; Stop 12/12/20 at 02:44 Nitroglycerin (Nitrostat) 0.4 mg PRN Q5MIN PRN SL CHEST PAIN; Start 12/11/20 at 02:45; Stop 12/12/20 at 02:44 Levofloxacin (Levaquin) 750 mg 1X ONCE PO Last administered on 12/11/20at 03:35; Start 12/11/20 at 03:30; Stop 12/11/20 at 03:31; Status DC Active Scripts Active Reported Linzess (Linaclotide) 72 Mcg Capsule 72 Mcg PO QID PRN Trelegy Ellipta 200-62.5-25 (Fluticasone/Umeclidin/Vilanter) 1 Each Blst.w.dev 1 Each IH DAILY Ventolin Hfa Inhaler (Albuterol Sulfate) 18 Gm Hfa.aer.ad 2 Puff INH QID Losartan Potassium 50 Mg Tablet 50 Mg PO DAILY Trazodone Hcl 100 Mg Tablet 1 Tab PO QHS Seroquel (Quetiapine Fumarate) 300 Mg Tablet 1 Tab PO QHS Allergies Allergies: Coded Allergies: aspirin (Unverified Allergy, Severe, Hives, 06/14/16) ROS PSYCHOLOGICAL ROS: No: Hallucinations Eyes: No Loss of vision HEENT: No: Epistaxis Respiratory: YES: Shortness of breath; No: Hemoptysis Cardiovascular: yes Chest Pain Gastrointestinal: No Vomiting, No Diarrhea Genitourinary: No Hematuria Skin: No Rash Physical Exam General: Alert, No acute distress HEENT: Atraumatic Lungs: Clear to auscultation Heart: Regular rate Abdomen: Soft Extremities: No edema Neuro: Normal speech Psych/Mental Status: Mental status NL Vitals VITALS Vital Signs Date Time Temp Pulse Resp B/P (MAP) Pulse Ox O2 Delivery O2 Flow Rate FiO2 12/11/20 10:02 Room Air 12/11/20 09:00 98.1 84 20 157/85 (109) 94 98.1 Labs Labs Laboratory Tests Test 12/11/20 00:55 12/11/20 02:20 12/11/20 06:09 White Blood Count 11.0 x10^3/uL (4.0-11.0) Red Blood Count 4.84 x10^6/uL (3.50-5.40) Hemoglobin 13.0 g/dL (12.0-15.5) Hematocrit 39.9 % (36.0-47.0) Mean Corpuscular Volume 82 fL (79-100) Mean Corpuscular Hemoglobin 27 pg (25-35) Mean Corpuscular Hemoglobin Concent 33 g/dL (31-37) Red Cell Distribution Width 15.0 % (11.5-14.5) Platelet Count 240 x10^3/uL (140-400) Neutrophils (%) (Auto) 57 % (31-73) Lymphocytes (%) (Auto) 33 % (24-48) Monocytes (%) (Auto) 7 % (0-9) Eosinophils (%) (Auto) 1 % (0-3) Basophils (%) (Auto) 1 % (0-3) Neutrophils # (Auto) 6.3 x10^3/uL (1.8-7.7) Lymphocytes # (Auto) 3.6 x10^3/uL (1.0-4.8) Monocytes # (Auto) 0.8 x10^3/uL (0.0-1.1) Eosinophils # (Auto) 0.1 x10^3/uL (0.0-0.7) Basophils # (Auto) 0.1 x10^3/uL (0.0-0.2) Prothrombin Time 13.8 SEC (11.7-14.0) Prothromb Time International Ratio 1.1 (0.8-1.1) D-Dimer (Chhaya) 0.46 ug/mlFEU (0.00-0.50) Sodium Level 146 mmol/L (136-145) Potassium Level 3.9 mmol/L (3.5-5.1) Chloride Level 109 mmol/L (98-107) Carbon Dioxide Level 23 mmol/L (21-32) Anion Gap 14 (6-14) Blood Urea Nitrogen 12 mg/dL (7-20) Creatinine 0.6 mg/dL (0.6-1.0) Estimated GFR (Cockcroft-Gault) 125.1 BUN/Creatinine Ratio 20 (6-20) Glucose Level 93 mg/dL (70-99) Calcium Level 8.9 mg/dL (8.5-10.1) Magnesium Level 2.1 mg/dL (1.8-2.4) Total Bilirubin 0.2 mg/dL (0.2-1.0) Aspartate Amino Transf (AST/SGOT) 11 U/L (15-37) Alanine Aminotransferase (ALT/SGPT) 13 U/L (14-59) Alkaline Phosphatase 92 U/L (46-116) Troponin I Quantitative < 0.017 ng/mL (0.000-0.055) < 0.017 ng/mL (0.000-0.055) FW-Jsc-M-Type Natriuretic Peptide 206 pg/mL (0-124) Total Protein 6.6 g/dL (6.4-8.2) Albumin 3.8 g/dL (3.4-5.0) Albumin/Globulin Ratio 1.4 (1.0-1.7) Lipase 47 U/L (73-393) Urine Collection Type Unknown Urine Color Yellow Urine Clarity Clear Urine pH 6.5 (<5.0-8.0) Urine Specific [place] 1.020 (1.000-1.030) Urine Protein Negative mg/dL (NEG-TRACE) Urine Glucose (UA) Negative mg/dL (NEG) Urine Ketones (Stick) Negative mg/dL (NEG) Urine Blood Moderate (NEG) Urine Nitrite Negative (NEG) Urine Bilirubin Negative (NEG) Urine Urobilinogen Dipstick 1.0 mg/dL (0.2 mg/dL) Urine Leukocyte Esterase Negative (NEG) Urine RBC 20-40 /HPF (0-2) Urine WBC 1-4 /HPF (0-4) Urine Squamous Epithelial Cells Mod /LPF Urine Bacteria Few /HPF (0-FEW) Urine Mucus Mod /LPF Urine Opiates Screen Neg (NEG) Urine Methadone Screen Neg (NEG) Urine Barbiturates Neg (NEG) Urine Phencyclidine Screen Neg (NEG) Urine Amphetamine/Methamphetamine Neg (NEG) Urine Benzodiazepines Screen Neg (NEG) Urine Cocaine Screen Pos (NEG) Urine Cannabinoids Screen Neg (NEG) Urine Ethyl Alcohol Neg (NEG) Laboratory Tests Test 12/11/20 00:55 12/11/20 02:20 12/11/20 06:09 White Blood Count 11.0 x10^3/uL (4.0-11.0) Red Blood Count 4.84 x10^6/uL (3.50-5.40) Hemoglobin 13.0 g/dL (12.0-15.5) Hematocrit 39.9 % (36.0-47.0) Mean Corpuscular Volume 82 fL (79-100) Mean Corpuscular Hemoglobin 27 pg (25-35) Mean Corpuscular Hemoglobin Concent 33 g/dL (31-37) Red Cell Distribution Width 15.0 % (11.5-14.5) Platelet Count 240 x10^3/uL (140-400) Neutrophils (%) (Auto) 57 % (31-73) Lymphocytes (%) (Auto) 33 % (24-48) Monocytes (%) (Auto) 7 % (0-9) Eosinophils (%) (Auto) 1 % (0-3) Basophils (%) (Auto) 1 % (0-3) Neutrophils # (Auto) 6.3 x10^3/uL (1.8-7.7) Lymphocytes # (Auto) 3.6 x10^3/uL (1.0-4.8) Monocytes # (Auto) 0.8 x10^3/uL (0.0-1.1) Eosinophils # (Auto) 0.1 x10^3/uL (0.0-0.7) Basophils # (Auto) 0.1 x10^3/uL (0.0-0.2) Prothrombin Time 13.8 SEC (11.7-14.0) Prothromb Time International Ratio 1.1 (0.8-1.1) D-Dimer (Chhaya) 0.46 ug/mlFEU (0.00-0.50) Sodium Level 146 mmol/L (136-145) Potassium Level 3.9 mmol/L (3.5-5.1) Chloride Level 109 mmol/L (98-107) Carbon Dioxide Level 23 mmol/L (21-32) Anion Gap 14 (6-14) Blood Urea Nitrogen 12 mg/dL (7-20) Creatinine 0.6 mg/dL (0.6-1.0) Estimated GFR (Cockcroft-Gault) 125.1 BUN/Creatinine Ratio 20 (6-20) Glucose Level 93 mg/dL (70-99) Calcium Level 8.9 mg/dL (8.5-10.1) Magnesium Level 2.1 mg/dL (1.8-2.4) Total Bilirubin 0.2 mg/dL (0.2-1.0) Aspartate Amino Transf (AST/SGOT) 11 U/L (15-37) Alanine Aminotransferase (ALT/SGPT) 13 U/L (14-59) Alkaline Phosphatase 92 U/L (46-116) Troponin I Quantitative < 0.017 ng/mL (0.000-0.055) < 0.017 ng/mL (0.000-0.055) CQ-Vks-O-Type Natriuretic Peptide 206 pg/mL (0-124) Total Protein 6.6 g/dL (6.4-8.2) Albumin 3.8 g/dL (3.4-5.0) Albumin/Globulin Ratio 1.4 (1.0-1.7) Lipase 47 U/L (73-393) Urine Collection Type Unknown Urine Color Yellow Urine Clarity Clear Urine pH 6.5 (<5.0-8.0) Urine Specific [place] 1.020 (1.000-1.030) Urine Protein Negative mg/dL (NEG-TRACE) Urine Glucose (UA) Negative mg/dL (NEG) Urine Ketones (Stick) Negative mg/dL (NEG) Urine Blood Moderate (NEG) Urine Nitrite Negative (NEG) Urine Bilirubin Negative (NEG) Urine Urobilinogen Dipstick 1.0 mg/dL (0.2 mg/dL) Urine Leukocyte Esterase Negative (NEG) Urine RBC 20-40 /HPF (0-2) Urine WBC 1-4 /HPF (0-4) Urine Squamous Epithelial Cells Mod /LPF Urine Bacteria Few /HPF (0-FEW) Urine Mucus Mod /LPF Urine Opiates Screen Neg (NEG) Urine Methadone Screen Neg (NEG) Urine Barbiturates Neg (NEG) Urine Phencyclidine Screen Neg (NEG) Urine Amphetamine/Methamphetamine Neg (NEG) Urine Benzodiazepines Screen Neg (NEG) Urine Cocaine Screen Pos (NEG) Urine Cannabinoids Screen Neg (NEG) Urine Ethyl Alcohol Neg (NEG) Assessment/Plan Assessment/Plan 1. Chest pain with atypical features. Myocardial infarction has been ruled out. Recent 2D echo showed normal LV systolic function and Lexiscan nuclear stress test did not show any significant ischemia. No further cardiac work-up is indicated at this time. 2. Acute COPD exacerbation and pneumonia left lower lobe. Treat per IM 3. Hypertension: Better controlled since admission 4. Substance abuse: Advised on abstinence from cocaine use Thank you for your consultation AMERICO ZHOU MD Dec 11, 2020 10:38
[2020-12-11 11:00] VITALS: BP 146/77
--- NOTE | 2020-12-11 11:28 | PDOC1 ---
History and Physical Date of Admission Date of Admission DATE: 12/11/20 TIME: 11:27 Identification/Chief Complaint Chief Complaint CHEST PAIN History of Present Illness History of Present Illness 55 year old female ADMITTED TO ER via EMS for chest pain starting about 30 minutes prior to arrival. Patient states she just got out of the bath // When she opened the refrigerator door with her right hand started feeling pain that she described as heaviness to her left arm this then radiated up her chest. Patient states over the past few days she has been a little bit of dyspnea with exertion, nausea and lightheadedness. Patient denies any prior heart conditions but has a family history of heart disease and siblings. Has a history of hypertension and mild COPD. Patient continues to smoke cigarettes daily. PMHx high blood pressure,chronic bronchitis, smoker, obesity uds // POS COCAINE Past Medical History Past Medical History cocaine abuse Cardiovascular: HTN, Hyperlipidemia Pulmonary: Bronchitis Psych: No pertinent hx, Addictions Rheumatologic: No pertinent hx Infectious disease: No pertinent hx Renal/: No pertinent hx Endocrine: No pertinent hx Past Surgical History Past Surgical History: Hysterectomy, Other Family History Family History: Diabetes, Hypertension Social History Smoke: <1 pack per day ALCOHOL: occassional Drugs: None, Cocaine Current Problem List Problem List Problems Medical Problems: (1) Chest pain Status: Acute (2) LLL pneumonia Status: Acute Current Medications Current Medications Current Medications Nitroglycerin (Nitrostat) 0.4 mg PRN Q5MIN PRN SL CP RATING > 1/10 Last administered on 12/11/20at 01:36; Start 12/11/20 at 01:00; Stop 12/11/20 at 02:40; Status DC Ondansetron HCl (Zofran) 4 mg PRN Q8HRS PRN IV NAUSEA/VOMITING 1ST CHOICE; Start 12/11/20 at 02:45; Stop 12/12/20 at 02:44 Morphine Sulfate (Morphine Sulfate) 4 mg PRN Q2HR PRN IV SEVERE PAIN 7-10 Last administered on 12/11/20at 02:48; Start 12/11/20 at 02:45; Stop 12/12/20 at 02:44 Acetaminophen (Tylenol) 650 mg PRN Q4HRS PRN PO FEVER > 100.3'F; Start 12/11/20 at 02:45; Stop 12/12/20 at 02:44 Nitroglycerin (Nitrostat) 0.4 mg PRN Q5MIN PRN SL CHEST PAIN; Start 12/11/20 at 02:45; Stop 12/12/20 at 02:44 Levofloxacin (Levaquin) 750 mg 1X ONCE PO Last administered on 12/11/20at 03:35; Start 12/11/20 at 03:30; Stop 12/11/20 at 03:31; Status DC Losartan Potassium (Cozaar) 50 mg DAILY PO ; Start 12/11/20 at 12:00 Trazodone HCl (Desyrel) 100 mg QHS PO ; Start 12/11/20 at 21:00 Non-Formulary Medication (Albuterol Sulfate (Ventolin Hfa Inhaler)) 2 puff QID INH ; Start 12/11/20 at 13:00; Status UNV Non-Formulary Medication (Fluticasone/ Umeclidin/ Vilanter (Trelegy Ellipta 200-62.5-25)) 1 each DAILY IH ; Start 12/12/20 at 09:00; Status UNV Non-Formulary Medication (Linaclotide (Linzess)) 72 mcg QID PRN PO CONSTIPATION; Start 12/11/20 at 11:15; Status UNV Quetiapine Fumarate (SEROquel) 300 mg QHS PO ; Start 12/11/20 at 21:00 Active Scripts Active Reported Linzess (Linaclotide) 72 Mcg Capsule 72 Mcg PO QID PRN Trelegy Ellipta 200-62.5-25 (Fluticasone/Umeclidin/Vilanter) 1 Each Blst.w.dev 1 Each IH DAILY Ventolin Hfa Inhaler (Albuterol Sulfate) 18 Gm Hfa.aer.ad 2 Puff INH QID Losartan Potassium 50 Mg Tablet 50 Mg PO DAILY Trazodone Hcl 100 Mg Tablet 1 Tab PO QHS Seroquel (Quetiapine Fumarate) 300 Mg Tablet 1 Tab PO QHS Allergies Allergies: Coded Allergies: aspirin (Unverified Allergy, Severe, Hives, 06/14/16) ROS General: YES: Fatigue; No: Chills, Night Sweats, Malaise, Appetite, Other PSYCHOLOGICAL ROS: No: Anxiety, Behavioral Disorder, Concentration difficultie, Decreased libido, Depression, Disorientation, Hallucinations, Hostility, Irritablity, Memory difficulties, Mood Swings, Obsessive thoughts, Physical abuse, Sexual abuse, Sleep disturbances, Suicidal ideation, Other Eyes: No Blurry vision, No Decreased vision, No Double vision, No Dry eyes, No Excessive tearing, No Eye Pain, No Itchy Eyes, No Loss of vision, No Photophobia, No Scotomata, No Uses contacts, No Uses glasses, No Other HEENT: No: Heacaches, Visual Changes, Hearing change, Nasal congestion, Nasal discharge, Oral lesions, Sinus pain, Sore Throat, Epistaxis, Sneezing, Snoring, Tinnitus, Vertigo, Vocal changes, Other ALLERGY AND IMMUNOLOGY: YES: Hives; No: Insect Bite Sensitivity, Itchy/Watery Eyes, Nasal Congestion, Post Nasal Drip, Seasonal Allergies, Other Hematological and Lymphatic: No: Bleeding Problems, Blood Clots, Blood Tra nsfusions, Brusing, Night Sweats, Pallor, Swollen Lymph Nodes, Other ENDOCRINE: No: Breast Changes, Galactorrhea, Hair Pattern Changes, Hot Flashes, Malaise/lethargy, Mood Swings, Palpitations, Polydipsia/polyuria, Skin Changes, Temperature Intolerance, Unexpected Weight Changes, Other Breast: No New/Changing Breast Lumps, No Nipple changes, No Nipple discharge, No Other Respiratory: YES: Cough, Shortness of breath; No: Hemoptysis, Orthopnea, Pleuritic Pain, SOB with excertion, Sputum Changes, Stridor, Tachypnea, Wheezing, Other Cardiovascular: yes Chest Pain Gastrointestinal: No Nausea, No Vomiting, No Abdominal Pain, No Diarrhea, No Constipation, No Melena, No Hematochezia, No Other Genitourinary: No Dysuria, No Frequency, No Incontinence, No Hematuria, No Retention, No Discharge, No Urgency, No Pain, No Flank Pain, No Other, No , No , No , No , No , No , No Musculoskeletal: No Gait Disturbance, No Joint Pain, No Joint Stiffness, No Joint Swelling, No Muscle Pain, No Muscular Weakness, No Pain In:, No Swelling In:, No Other Neurological: No Behavorial Changes, No Bowel/Bladder ControlChng, No Confusion, No Dizziness, No Gait Disturbance, No Headaches, No Impaired Cattle Inspector rd/balance, No Memory Loss, No Numbness/Tingling, No Seizures, No Speech Problems, No Tremors, No Visual Changes, No Weakness, No Other Skin: No Dry Skin, No Eczema, No Hair Changes, No Lumps, No Mole Changes, No Mottling, No Nail Changes, No Pruritus, No Rash, No Skin Lesion Changes, No Other, No Acne Physical Exam General: Alert, Oriented X3, Cooperative, No acute distress HEENT: Atraumatic, PERRLA, EOMI, Mucous membr. moist/pink Lungs: Clear to auscultation, Normal air movement Heart: RRR, no thrills, no gallops, no jug vein distention Breasts: Not examined Abdomen: Normal bowel sounds, Soft Rectal Exam: not examined PELVIC: Examination not indicated Extremities: No cyanosis Skin: No significant lesion Neuro: Normal speech, Sensation intact, Cranial nerves 3-12 NL Psych/Mental Status: Mental status NL, Mood NL Vitals Vitals Vital Signs Date Time Temp Pulse Resp B/P (MAP) Pulse Ox O2 Delivery O2 Flow Rate FiO2 12/11/20 11:00 97.8 73 18 146/77 (100) 97 Room Air 97.8 Labs Labs Laboratory Tests Test 12/11/20 00:55 12/11/20 02:20 12/11/20 06:09 White Blood Count 11.0 x10^3/uL (4.0-11.0) Red Blood Count 4.84 x10^6/uL (3.50-5.40) Hemoglobin 13.0 g/dL (12.0-15.5) Hematocrit 39.9 % (36.0-47.0) Mean Corpuscular Volume 82 fL (79-100) Mean Corpuscular Hemoglobin 27 pg (25-35) Mean Corpuscular Hemoglobin Concent 33 g/dL (31-37) Red Cell Distribution Width 15.0 % (11.5-14.5) Platelet Count 240 x10^3/uL (140-400) Neutrophils (%) (Auto) 57 % (31-73) Lymphocytes (%) (Auto) 33 % (24-48) Monocytes (%) (Auto) 7 % (0-9) Eosinophils (%) (Auto) 1 % (0-3) Basophils (%) (Auto) 1 % (0-3) Neutrophils # (Auto) 6.3 x10^3/uL (1.8-7.7) Lymphocytes # (Auto) 3.6 x10^3/uL (1.0-4.8) Monocytes # (Auto) 0.8 x10^3/uL (0.0-1.1) Eosinophils # (Auto) 0.1 x10^3/uL (0.0-0.7) Basophils # (Auto) 0.1 x10^3/uL (0.0-0.2) Prothrombin Time 13.8 SEC (11.7-14.0) Prothromb Time International Ratio 1.1 (0.8-1.1) D-Dimer (Chhaya) 0.46 ug/mlFEU (0.00-0.50) Sodium Level 146 mmol/L (136-145) Potassium Level 3.9 mmol/L (3.5-5.1) Chloride Level 109 mmol/L (98-107) Carbon Dioxide Level 23 mmol/L (21-32) Anion Gap 14 (6-14) Blood Urea Nitrogen 12 mg/dL (7-20) Creatinine 0.6 mg/dL (0.6-1.0) Estimated GFR (Cockcroft-Gault) 125.1 BUN/Creatinine Ratio 20 (6-20) Glucose Level 93 mg/dL (70-99) Calcium Level 8.9 mg/dL (8.5-10.1) Magnesium Level 2.1 mg/dL (1.8-2.4) Total Bilirubin 0.2 mg/dL (0.2-1.0) Aspartate Amino Transf (AST/SGOT) 11 U/L (15-37) Alanine Aminotransferase (ALT/SGPT) 13 U/L (14-59) Alkaline Phosphatase 92 U/L (46-116) Troponin I Quantitative < 0.017 ng/mL (0.000-0.055) < 0.017 ng/mL (0.000-0.055) FK-Kgf-X-Type Natriuretic Peptide 206 pg/mL (0-124) Total Protein 6.6 g/dL (6.4-8.2) Albumin 3.8 g/dL (3.4-5.0) Albumin/Globulin Ratio 1.4 (1.0-1.7) Lipase 47 U/L (73-393) Urine Collection Type Unknown Urine Color Yellow Urine Clarity Clear Urine pH 6.5 (<5.0-8.0) Urine Specific [place] 1.020 (1.000-1.030) Urine Protein Negative mg/dL (NEG-TRACE) Urine Glucose (UA) Negative mg/dL (NEG) Urine Ketones (Stick) Negative mg/dL (NEG) Urine Blood Moderate (NEG) Urine Nitrite Negative (NEG) Urine Bilirubin Negative (NEG) Urine Urobilinogen Dipstick 1.0 mg/dL (0.2 mg/dL) Urine Leukocyte Esterase Negative (NEG) Urine RBC 20-40 /HPF (0-2) Urine WBC 1-4 /HPF (0-4) Urine Squamous Epithelial Cells Mod /LPF Urine Bacteria Few /HPF (0-FEW) Urine Mucus Mod /LPF Urine Opiates Screen Neg (NEG) Urine Methadone Screen Neg (NEG) Urine Barbiturates Neg (NEG) Urine Phencyclidine Screen Neg (NEG) Urine Amphetamine/Methamphetamine Neg (NEG) Urine Benzodiazepines Screen Neg (NEG) Urine Cocaine Screen Pos (NEG) Urine Cannabinoids Screen Neg (NEG) Urine Ethyl Alcohol Neg (NEG) Laboratory Tests Test 12/11/20 00:55 12/11/20 02:20 12/11/20 06:09 White Blood Count 11.0 x10^3/uL (4.0-11.0) Red Blood Count 4.84 x10^6/uL (3.50-5.40) Hemoglobin 13.0 g/dL (12.0-15.5) Hematocrit 39.9 % (36.0-47.0) Mean Corpuscular Volume 82 fL (79-100) Mean Corpuscular Hemoglobin 27 pg (25-35) Mean Corpuscular Hemoglobin Concent 33 g/dL (31-37) Red Cell Distribution Width 15.0 % (11.5-14.5) Platelet Count 240 x10^3/uL (140-400) Neutrophils (%) (Auto) 57 % (31-73) Lymphocytes (%) (Auto) 33 % (24-48) Monocytes (%) (Auto) 7 % (0-9) Eosinophils (%) (Auto) 1 % (0-3) Basophils (%) (Auto) 1 % (0-3) Neutrophils # (Auto) 6.3 x10^3/uL (1.8-7.7) Lymphocytes # (Auto) 3.6 x10^3/uL (1.0-4.8) Monocytes # (Auto) 0.8 x10^3/uL (0.0-1.1) Eosinophils # (Auto) 0.1 x10^3/uL (0.0-0.7) Basophils # (Auto) 0.1 x10^3/uL (0.0-0.2) Prothrombin Time 13.8 SEC (11.7-14.0) Prothromb Time International Ratio 1.1 (0.8-1.1) D-Dimer (Chhaya) 0.46 ug/mlFEU (0.00-0.50) Sodium Level 146 mmol/L (136-145) Potassium Level 3.9 mmol/L (3.5-5.1) Chloride Level 109 mmol/L (98-107) Carbon Dioxide Level 23 mmol/L (21-32) Anion Gap 14 (6-14) Blood Urea Nitrogen 12 mg/dL (7-20) Creatinine 0.6 mg/dL (0.6-1.0) Estimated GFR (Cockcroft-Gault) 125.1 BUN/Creatinine Ratio 20 (6-20) Glucose Level 93 mg/dL (70-99) Calcium Level 8.9 mg/dL (8.5-10.1) Magnesium Level 2.1 mg/dL (1.8-2.4) Total Bilirubin 0.2 mg/dL (0.2-1.0) Aspartate Amino Transf (AST/SGOT) 11 U/L (15-37) Alanine Aminotransferase (ALT/SGPT) 13 U/L (14-59) Alkaline Phosphatase 92 U/L (46-116) Troponin I Quantitative < 0.017 ng/mL (0.000-0.055) < 0.017 ng/mL (0.000-0.055) QB-Nnq-N-Type Natriuretic Peptide 206 pg/mL (0-124) Total Protein 6.6 g/dL (6.4-8.2) Albumin 3.8 g/dL (3.4-5.0) Albumin/Globulin Ratio 1.4 (1.0-1.7) Lipase 47 U/L (73-393) Urine Collection Type Unknown Urine Color Yellow Urine Clarity Clear Urine pH 6.5 (<5.0-8.0) Urine Specific [place] 1.020 (1.000-1.030) Urine Protein Negative mg/dL (NEG-TRACE) Urine Glucose (UA) Negative mg/dL (NEG) Urine Ketones (Stick) Negative mg/dL (NEG) Urine Blood Moderate (NEG) Urine Nitrite Negative (NEG) Urine Bilirubin Negative (NEG) Urine Urobilinogen Dipstick 1.0 mg/dL (0.2 mg/dL) Urine Leukocyte Esterase Negative (NEG) Urine RBC 20-40 /HPF (0-2) Urine WBC 1-4 /HPF (0-4) Urine Squamous Epithelial Cells Mod /LPF Urine Bacteria Few /HPF (0-FEW) Urine Mucus Mod /LPF Urine Opiates Screen Neg (NEG) Urine Methadone Screen Neg (NEG) Urine Barbiturates Neg (NEG) Urine Phencyclidine Screen Neg (NEG) Urine Amphetamine/Methamphetamine Neg (NEG) Urine Benzodiazepines Screen Neg (NEG) Urine Cocaine Screen Pos (NEG) Urine Cannabinoids Screen Neg (NEG) Urine Ethyl Alcohol Neg (NEG) Images Images CT THORAX WO INDICATION: lung nodule COMPARISON STUDY: Radiograph 09/19/2020. TECHNIQUE: Unenhanced axial images were obtained through the lungs and upper abdomen. Coronal and sagittal multiplanar reconstructions were also obtained. PQRS compliance statement: One or more of the following individualized dose reduction techniques were utilized for this examination: 1. Automated exposure control 2. Adjustment of the mA and/or kV according to patient size 3. Use of iterative reconstruction technique FINDINGS: Lungs and Airways: No pulmonary mass or consolidation. Bibasilar dependent atelectasis. Right upper lobe indeterminate nodule (series 8 image 48). Calcified pulmonary granuloma. Bronchial wall thickening. Trace upper lobe emphysematous changes. Pleura: The pleural spaces are normal. Heart and Mediastinum: The visualized thyroid gland is normal in size and attenuation. No axillary or supraclavicular lymphadenopathy. No mediastinal, hilar or retrocrural lymphadenopathy. Normal cardiac size. No pericardial effu ani. Coronary artery atherosclerotic disease. Mitral annular calcification. The great vessels of the thorax are normal. Abdomen: The visualized abdominal organs demonstrate no abnormality. Bones and Soft Tissues: The visualized skeletal structures and soft tissues of the chest wall are within normal limits. IMPRESSION: Indeterminate right upper lobe 5 mm nodule. Consider optional 12 month follow-up chest CT to assess stability. Electronically signed by: Mandeep Mckeon MD (09/30/2020 11:57 AM) [id number] DICTATED and SIGNED BY: MANDEEP MCKEON MD DATE: 09/30/20 [id number] Nurse/Tech Notes Lungs CTA, S1S2 Consent: The procedure was explained to the patient in lay terms. Informed consent was witnessed. Timeout was entered into Buz. History and Stress Test performed by EUFEMIA Zeng Pharm. Details Pharmacologic stress testing was performed using 0.4mg per 5ml of regadenoson given intravenously over 7-10 seconds. Stress Symptoms Dyspnea POST EXERCISE Reason for Termination: Infusion complete Max HR: 105 bpm Max Blood Pressure: 136/67mmHg Blood Pressure response to exercise: Normal blood pressure response during stress. Heart Rate response to exercise: normal response Chest Pain: No. Arrhythmia: Yes. PVC ST Change: No. INTERPRETATION Stress EKG Conclusion: Baseline EKG showed sinus rhythm. No ischemic changes at peak stress. No arrhythmias. Imaging Protocol IMAGE PROTOCOL: Rest Tc-99m/stress Tc-99m 1 day Rest: Stress: Viability: Radiopharm. Tc99m Sestamibi Tc99m Sestamibi Dose 11mCi 32.5mCi Duration 15min. 10min. Img Date 10/17/2020 10/17/2020 Inj-Img Time 60min. 60min. Rest Admin Site: IV - Right Antecubital Agile Scrum Master: EUFEMIA Zeng Stress Admin Site: IV - Right Antecubital Agile Scrum Master: EUFEMIA Zegn STRESS DATA End Diast. Vol. 94.0ml Av. Heart Rate 92.0bpm End Syst. Vol. 25.0ml CO Index BSA 0.0L/min Myocardial Mass 126.0g Eject. Fraction 73.0% Stress Rates Pk. Fill Rate 4.11EDV/sec LVtime Pk. Fill 195.86msec Pk. Empty Rate 6.00ESV/sec LVtime Pk. Eject 96.00msec 1/3 Pk. Fill 0.89EDV/sec Stress Scores Regional WT 1.00 Summed WT 6.00 Regional WM 0.00 Summed WM 0.00 Study quality was good. Left Ventricular size was Normal at Rest and Stress. Lung uptake was . Left Ventricular ejection fraction is 70%. The rest and stress images show normal perfusion, normal contraction and thickening. LV Perf. Quant 17 Seg. SSS 2.00 17 Seg. SRS 1.00 17 Seg. SDS 2.00 Stress Defect Extent (% LAD) 0.00 Rest Defect Extent (% LAD) 0.60 Rev. Defect Extent (% LAD) 0.00 Stress Defect Extent (% LCX) 0.00 Rest Defect Extent (% LCX) 0.00 Rev. Defect Extent (% LCX) 0.00 Stress Defect Extent (% RCA) 0.00 Rest Defect Extent (% RCA) 0.00 Rev. Defect Extent (% RCA) 0.00 Stress Defect Extent (% CONOR) 0.00 Rest Defect Extent (% CONOR) 0.20 Rev. Defect Extent (% CONOR) 0.00 Conclusion 1. Regadenoson cardioisotope stress test did not show any evidence of ischemia or infarct. 2. Normal left ventricular systolic function with ejection fraction calculated at 70%. 3. Low risk for cardiac events. Signed by : Americo Zhou Electronically Approved : 10/17/2020 13:05:29 DICTATED and SIGNED BY: AMERICO ZHOU MD DATE: 10/17/20 [id number] PATIENT: LAWSON PLASCENCIA ACCOUNT: [id number] : 1965 LOCATION: ER AGE: 55 SEX: F EXAM STATUS: REG ER ORD. PHYSICIAN: JAVIER MORALES MD REASON: chest pain PROCEDURE: PORTABLE CHEST 1V EXAMINATION: XR CHEST 1V CLINICAL HISTORY: Chest pain EXAM DATE/TIME: 12/11/2020 1:03 AM COMPARISON: 09/19/2020 FINDINGS: Lines, Tubes, and Devices: None. Cardiomediastinal Silhouette: Normal heart size. Lungs and Pleura: Increased interstitial opacities in the left greater than right lower lung zones. No evidence of pleural effusion. Pulmonary vasculature unremarkable. Bones and Soft Tissues: No acute osseous abnormality. IMPRESSION: Increased interstitial opacities in the left greater than right lower lung zones. Electronically signed by: Christophe Tinoco DO (12/11/2020 2:22 AM) [facility] DICTATED and SIGNED BY: CHRISTOPHE TINOCO DO DATE: 12/11/20 [id number] VTE Prophylaxis Ordered VTE Prophylaxis Devices: No VTE Pharmacological Prophylaxi: Yes Assessment/Plan Assessment/Plan Impression: Chest pain ON 10-17-20 Regadenoson cardioisotope stress test did not show any evidence of ischemia or infarct. / Normal left ventricular systolic function with ejection fraction calculated at 70%. Low risk for cardiac events. However with cocaine abuse at risk for sudden cardiac Morbid obesity COPD LLL pneumonia // Increased interstitial opacities in the left greater than right lower lung zones. No evidence of pleural effusion. Pulmonary vasculature unremarkable. agree with po LEVAQUIN Indeterminate right upper lobe 5 mm nodule. Consider optional 9 month follow- up chest CT to assess stability. Cocaine abuse plan ADMITTED ADMIT CVC Consult cardiology trend troponin, NEG X 2 stop substance abuse Acute bronchitis / PNEUMONIA - duonebs, pulmicort, singulair. Needs outpatient spirometry Presumptive dx of COPD - Chronic bronchitis COPD exacerbation. HTN - WORSE WITH COCAINE Smoker - 2ppd, counseled in depth, Obesity - counseled on weight loss D/W RN Justifications for Admission Other Justification TRINI QURESHI MD Dec 11, 2020 11:28
--- NOTE | 2020-12-11 11:32 | NUR ---
Okay to use home inhailers per [place].
[2020-12-11] MEDS: ALBUTEROL SULFATE INH SCH ×3 (11:50→20:38)
[2020-12-11] MEDS: VILANTER INH SCH (11:50)
[2020-12-11] MEDS: LOSARTAN POTASSIUM 50 MG TABLET. PO SCH (11:50)
[2020-12-11] MEDS: UMECLIDIN INH SCH (11:50)
[2020-12-11] MEDS: FLUTICASONE INH SCH (11:50)
[2020-12-11] MEDS ORDERED: IPRATRPIUM/ALBUTEROL 0.5/2.5MG 3 ML NEBU. NEB SCH (12:15)
[2020-12-11] MEDS ORDERED: guaiFENesin ORAL 200 MG/10 ML LIQUID. PO PRN (12:15)
[2020-12-11] MEDS ORDERED: MAG HYDROX/ALUMINUM HYD/SIMETH 30 ML ORAL.SUSP PO PRN (12:15)
[2020-12-11] MEDS ORDERED: 0.9 % SODIUM CHLORIDE 10 ML DISP.SYRIN. IV PRN (12:15)
[2020-12-11] MEDS ORDERED: DOCUSATE SODIUM 100 MG CAPSULE. PO PRN (12:15)
[2020-12-11] MEDS ORDERED: SODIUM PHOSPHATES 19/7GM 133 ML ENEMA. PR PRN (12:15)
[2020-12-11] MEDS: ENOXAPARIN 40 MG/0.4 ML SYRINGE. SQ SCH (13:14)
[2020-12-11] MEDS ORDERED: LUBIPROSTONE 24 MCG CAPSULE PO PRN (13:15)
[2020-12-11] MEDS ORDERED: IPRATRPIUM/ALBUTEROL 0.5/2.5MG 3 ML NEBU. NEB PRN (13:45)
[2020-12-11 15:00] VITALS: BP 120/67
[2020-12-11 19:51] VITALS: BP 102/75
[2020-12-11] MEDS: BUDESONIDE 0.5 MG/2 ML NEBU. NEB SCH (20:08)
[2020-12-11] MEDS ORDERED: traZODone 100 MG TABLET. PO SCH (21:00)
[2020-12-11] MEDS ORDERED: MONTELUKAST SODIUM 10 MG TABLET. PO SCH (21:00)
[2020-12-11] MEDS ORDERED: QUEtiapine 100 MG TABLET. PO SCH (21:00)
[2020-12-11 22:24] VITALS: BP 156/85
[2020-12-12 02:43] VITALS: BP 141/69
[2020-12-12 06:05] VITALS: BP 145/73
[2020-12-12] MEDS: BUDESONIDE 0.5 MG/2 ML NEBU. NEB SCH (07:37)
[2020-12-12] MEDS: UMECLIDIN INH SCH (07:54)
[2020-12-12] MEDS: FLUTICASONE INH SCH (07:54)
[2020-12-12] MEDS: VILANTER INH SCH (07:54)
[2020-12-12] MEDS: ALBUTEROL SULFATE INH SCH ×2 (07:54→11:48)
[2020-12-12] MEDS: LOSARTAN POTASSIUM 50 MG TABLET. PO SCH (07:54)
[2020-12-12 08:12] LABS: CHOLESTEROL/HDL RATIO 4.9
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
[2020-12-12 11:17] VITALS: BP 165/89
[2020-12-12] MEDS: ENOXAPARIN 40 MG/0.4 ML SYRINGE. SQ SCH (11:48)
--- NOTE | 2020-12-12 12:51 | PDOC3 ---
Discharge Summary Date of Admission: Dec 11, 2020 Date of Discharge: Dec 12, 2020 Follow-Up: 3-5 days Admitting Diagnosis comment: HPI 55 year old female ADMITTED TO ER via EMS for chest pain starting about 30 minutes prior to arrival. Patient states she just got out of the bath // When she opened the refrigerator door with her right hand started feeling pain that she described as heaviness to her left arm this then radiated up her chest. Patient states over the past few days she has been a little bit of dyspnea with exertion, nausea and lightheadedness. Patient denies any prior heart conditions but has a family history of heart disease and siblings. Has a history of hypertension and mild COPD. Patient continues to smoke cigarettes daily. PMHx high blood pressure,chronic bronchitis, smoker, obesity uds // POS COCAINE IN UDS , LAST USE ONE WEEK AGO states she is under emotional stress at home, reported to be verbally abusive x months, but she feels safe in her home COMPLICATIONS NONE Consults pulm, cardiology d/c meds see MAR PROCEDURES CVC MONITOR PROGNOSIS GOOD WITH COMPLIANCE F/U PCP IN 3-7 DAYS discharge dx Assessment/Plan Impression: Chest pain, noncardiac, due to pneumonia, GERD ON 10-17-20 Regadenoson cardioisotope stress test did not show any evidence of ischemia or infarct. / Normal left ventricular systolic function with ejection fraction calculated at 70%. Low risk for cardiac events. However with cocaine abuse at risk for sudden cardiac Morbid obesity COPD LLL pneumonia // Increased interstitial opacities in the left greater than right lower lung zones. No evidence of pleural effusion. Pulmonary vasculature unremarkable. agree with po LEVAQUIN Indeterminate right upper lobe 5 mm nodule. Consider optional 9 month follow- up chest CT to assess stability. Cocaine abuse, counseled on cessation treatment program need rylan plan ADMITTED ADMIT CVC Consult cardiology trend troponin, NEG X 2 stop substance abuse Acute bronchitis / PNEUMONIA - duonebs, pulmicort, singulair. Needs outpatient spirometry Presumptive dx of COPD - Chronic bronchitis COPD exacerbation. HTN - WORSE WITH COCAINE Smoker - 2ppd, counseled in depth, 8 min Obesity - counseled on weight loss d/c planning 34 min History of Present Illness History of Present Illness Identification/Chief Complaint Chief Complaint CHEST PAIN History of Present Illness History of Present Illness 55 year old female ADMITTED TO ER via EMS for chest pain starting about 30 minutes prior to arrival. Patient states she just got out of the bath // When she opened the refrigerator door with her right hand started feeling pain that she described as heaviness to her left arm this then radiated up her chest. Patient states over the past few days she has been a little bit of dyspnea with exertion, nausea and lightheadedness. Patient denies any prior heart conditions but has a family history of heart disease and siblings. Has a history of hy pertension and mild COPD. Patient continues to smoke cigarettes daily. PMHx high blood pressure,chronic bronchitis, smoker, obesity uds // POS COCAINE states she is under emotional stress at home, reported to be verbally abusive x months, but she feels safe in her home Past Medical History Past Medical History cocaine abuse Cardiovascular: HTN, Hyperlipidemia Pulmonary: Bronchitis Psych: No pertinent hx, Addictions Rheumatologic: No pertinent hx Infectious disease: No pertinent hx Renal/: No pertinent hx Endocrine: No pertinent hx Past Surgical History Past Surgical History: Hysterectomy, Other Family History Family History: Diabetes, Hypertension Social History Smoke: <1 pack per day ALCOHOL: occassional Drugs: None, Cocaine Current Problem List Problem List Problems Medical Problems: (1) Chest pain Status: Acute (2) LLL pneumonia Status: Acute Current Medications Current Medications Current Medications Nitroglycerin (Nitrostat) 0.4 mg PRN Q5MIN PRN SL CP RATING > 1/10 Last administered on 12/11/20at 01:36; Start 12/11/20 at 01:00; Stop 12/11/20 at 02:40; Status DC Ondansetron HCl (Zofran) 4 mg PRN Q8HRS PRN IV NAUSEA/VOMITING 1ST CHOICE; Start 12/11/20 at 02:45; Stop 12/12/20 at 02:44 Morphine Sulfate (Morphine Sulfate) 4 mg PRN Q2HR PRN IV SEVERE PAIN 7-10 Last administered on 12/11/20at 02:48; Start 12/11/20 at 02:45; Stop 12/12/20 at 02:44 Acetaminophen (Tylenol) 650 mg PRN Q4HRS PRN PO FEVER > 100.3'F; Start 12/11/20 at 02:45; Stop 12/12/20 at 02:44 Nitroglycerin (Nitrostat) 0.4 mg PRN Q5MIN PRN SL CHEST PAIN; Start 12/11/20 at 02:45; Stop 12/12/20 at 02:44 Levofloxacin (Levaquin) 750 mg 1X ONCE PO Last administered on 12/11/20at 03:35; Start 12/11/20 at 03:30; Stop 12/11/20 at 03:31; Status DC Losartan Potassium (Cozaar) 50 mg DAILY PO ; Start 12/11/20 at 12:00 Trazodone HCl (Desyrel) 100 mg QHS PO ; Start 12/11/20 at 21:00 Non-Formulary Medication (Albuterol Sulfate (Ventolin Hfa Inhaler)) 2 puff QID INH ; Start 12/11/20 at 13:00; Status UNV Non-Formulary Medication (Fluticasone/ Umeclidin/ Vilanter (Trelegy Ellipta 200-62.5-25)) 1 each DAILY IH ; Start 12/12/20 at 09:00; Status UNV Non-Formulary Medication (Linaclotide (Linzess)) 72 mcg QID PRN PO CONSTIPATION; Start 12/11/20 at 11:15; Status UNV Quetiapine Fumarate (SEROquel) 300 mg QHS PO ; Start 12/11/20 at 21:00 Active Scripts Active Reported Linzess (Linaclotide) 72 Mcg Capsule 72 Mcg PO QID PRN Trelegy Ellipta 200-62.5-25 (Fluticasone/Umeclidin/Vilanter) 1 Each Blst.w.dev 1 Each IH DAILY Ventolin Hfa Inhaler (Albuterol Sulfate) 18 Gm Hfa.aer.ad 2 Puff INH QID Losartan Potassium 50 Mg Tablet 50 Mg PO DAILY Trazodone Hcl 100 Mg Tablet 1 Tab PO QHS Seroquel (Quetiapine Fumarate) 300 Mg Tablet 1 Tab PO QHS Allergies Allergies: Coded Allergies: aspirin (Unverified Allergy, Severe, Hives, 06/14/16) ROS General: YES: Fatigue; No: Chills, Night Sweats, Malaise, Appetite, Other PSYCHOLOGICAL ROS: No: Anxiety, Behavioral Disorder, Concentration difficultie, Decreased libido, Depression, Disorientation, Hallucinations, Hostility, Irritablity, Memory difficulties, Mood Swings, Obsessive thoughts, Physical abuse, Sexual abuse, Sleep disturbances, Suicidal ideation, Other Eyes: No Blurry vision, No Decreased vision, No Double vision, No Dry eyes, No Excessive tearing, No Eye Pain, No Itchy Eyes, No Loss of vision, No Photophobia, No Scotomata, No Uses contacts, No Uses glasses, No Other HEENT: No: Heacaches, Visual Changes, Hearing change, Nasal congestion, Nasal discharge, Oral lesions, Sinus pain, Sore Throat, Epistaxis, Sneezing, Snoring, Tinnitus, Vertigo, Vocal changes, Other ALLERGY AND IMMUNOLOGY: YES: Hives; No: Insect Bite Sensitivity, Itchy/Watery Eyes, Nasal Congestion, Post Nasal Drip, Seasonal Allergies, Other Hematological and Lymphatic: No: Bleeding Problems, Blood Clots, Blood Transfusions, Brusing, Night Sweats, Pallor, Swollen Lymph Nodes, Other ENDOCRINE: No: Breast Changes, Galactorrhea, Hair Pattern Changes, Hot Flashes, Malaise/lethargy, Mood Swings, Palpitations, Polydipsia/polyuria, Skin Changes, Temperature Intolerance, Unexpected Weight Changes, Other Breast: No New/Changing Breast Lumps, No Nipple changes, No Nipple discharge, No Other Respiratory: YES: Cough, Shortness of breath; No: Hemoptysis, Orthopnea, Pleuritic Pain, SOB with excertion, Sputum Freed es, Stridor, Tachypnea, Wheezing, Other Cardiovascular: yes Chest Pain Gastrointestinal: No Nausea, No Vomiting, No Abdominal Pain, No Diarrhea, No Constipation, No Melena, No Hematochezia, No Other Genitourinary: No Dysuria, No Frequency, No Incontinence, No Hematuria, No Retention, No Discharge, No Urgency, No Pain, No Flank Pain, No Other, No , No , No , No , No , No , No Musculoskeletal: No Gait Disturbance, No Joint Pain, No Joint Stiffness, No Joint Swelling, No Muscle Pain, No Muscular Weakness, No Pain In:, No Swelling In:, No Other Neurological: No Behavorial Changes, No Bowel/Bladder ControlChng, No Confusion, No Dizziness, No Gait Disturbance, No Headaches, No Impaired Coord/balance, No Memory Loss, No Numbness/Tingling, No Seizures, No Speech Problems, No Tremors, No Visual Changes, No Weakness, No Other Skin: No Dry Skin, No Eczema, No Hair Changes, No Lumps, No Mole Changes, No Mottling, No Nail Changes, No Pruritus, No Rash, No Skin Lesion Changes, No Other, No Acne Vitals Vitals Vital Signs Date Time Temp Pulse Resp B/P (MAP) Pulse Ox O2 Delivery O2 Flow Rate FiO2 12/12/20 07:54 80 145/73 12/12/20 07:37 96 Room Air 12/12/20 06:05 98.1 20 98.1 Physical Exam General: Alert, Oriented X3, Cooperative, No acute distress Heart: Regular rate, Normal S1, Normal S2 Lungs: Crackles Abdomen: Soft Extremities: No edema Skin: No significant lesion Labs LABS PATIENT: LAWSON PLASCENCIA ACCOUNT: [id number] : 1965 LOCATION: ER AGE: 55 SEX: F EXAM STATUS: REG ER ORD. PHYSICIAN: JAVIER MORALES MD REASON: chest pain PROCEDURE: PORTABLE CHEST 1V EXAMINATION: XR CHEST 1V CLINICAL HISTORY: Chest pain EXAM DATE/TIME: 12/11/2020 1:03 AM COMPARISON: 09/19/2020 FINDINGS: Lines, Tubes, and Devices: None. Cardiomediastinal Silhouette: Normal heart size. Lungs and Pleura: Increased interstitial opacities in the left greater than right lower lung zones. No evidence of pleural effusion. Pulmonary vasculature unremarkable. Bones and Soft Tissues: No acute osseous abnormality. IMPRESSION: Increased interstitial opacities in the left greater than right lower lung zo ray. Electronically signed by: Christophe Morin DO (12/11/2020 2:22 AM) [facility] Problems Medical Problems: (1) Chest pain Status: Acute (2) LLL pneumonia Status: Acute Brief Hospital Course Ms. Plascencia is a 55 old [sex] who presented with [ ] CONDITION AT DISCHARGE: Improved Discharge Medications Current Medications Nitroglycerin (Nitrostat) 0.4 mg PRN Q5MIN PRN SL CP RATING > 1/10 Last administered on 12/11/20at 01:36; Start 12/11/20 at 01:00; Stop 12/11/20 at 02:40; Status DC Ondansetron HCl (Zofran) 4 mg PRN Q8HRS PRN IV NAUSEA/VOMITING 1ST CHOICE; Start 12/11/20 at 02:45; Stop 12/12/20 at 02:44; Status DC Morphine Sulfate (Morphine Sulfate) 4 mg PRN Q2HR PRN IV SEVERE PAIN 7-10 Last administered on 12/11/20at 02:48; Start 12/11/20 at 02:45; Stop 12/12/20 at 02:44; Status DC Acetaminophen (Tylenol) 650 mg PRN Q4HRS PRN PO FEVER > 100.3'F; Start 12/11/20 at 02:45; Stop 12/11/20 at 12:18; Status DC Nitroglycerin (Nitrostat) 0.4 mg PRN Q5MIN PRN SL CHEST PAIN; Start 12/11/20 at 02:45; Stop 12/12/20 at 02:44; Status DC Levofloxacin (Levaquin) 750 mg 1X ONCE PO Last administered on 12/11/20at 03:35; Start 12/11/20 at 03:30; Stop 12/11/20 at 03:31; Status DC Losartan Potassium (Cozaar) 50 mg DAILY PO Last administered on 12/12/20at 07:54; Start 12/11/20 at 12:00 Trazodone HCl (Desyrel) 100 mg QHS PO Last administered on 12/11/20at 20:37; Start 12/11/20 at 21:00 Non-Formulary Medication (Albuterol Sulfate (Ventolin Hfa Inhaler)) 2 puff QID INH Last administered on 12/12/20at 11:48; Start 12/11/20 at 13:00 Non-Formulary Medication (Fluticasone/ Umeclidin/ Vilanter (Trelegy Ellipta 200-62.5-25)) 1 each DAILY INH Last administered on 12/12/20at 07:54; Start 12/11/20 at 12:00 Lubiprostone (Amitiza) 24 mcg PRN BID PRN PO CONSTIPATION Last administered on 12/11/20at 13:13; Start 12/11/20 at 13:15 Quetiapine Fumarate (SEROquel) 300 mg QHS PO Last administered on 12/11/20at 20:37; Start 12/11/20 at 21:00 Levofloxacin (Levaquin) 500 mg DAILY06 PO Last administered on 12/12/20at 05:05; Start 12/12/20 at 06:00 Sodium Chloride (Normal Saline Flush) 3 ml QSHIFT PRN IV AFTER MEDS AND BLOOD DRAWS; Start 12/11/20 at 12:15 Ondansetron HCl (Zofran) 4 mg PRN Q4HRS PRN IV NAUSEA/VOMITING; Start 12/11/20 at 12:15 Acetaminophen (Tylenol) 650 mg PRN Q4HRS PRN PO TEMP OVER 100.4F OR MILD PAIN Last administered on 12/11/20at 15:09; Start 12/11/20 at 12:15 Al Hydroxide/Mg Hydroxide (Mylanta Plus Xs) 30 ml PRN DAILY PRN PO HEARTBURN / GAS; Start 12/11/20 at 12:15 Sodium Monofluorophosphate (Fleet Adult) 133 ml PRN DAILY PRN AR CONSTIPATION; Start 12/11/20 at 12:15 Docusate Sodium (Colace) 100 mg PRN BID PRN PO HARD STOOLS; Start 12/11/20 at 12:15 Albuterol/ Ipratropium (Duoneb) 3 ml Q4H NEB ; Start 12/11/20 at 12:15; Stop 12/11/20 at 13:36; Status DC Guaifenesin (Robitussin) 200 mg PRN Q4HRS PRN PO COUGH; Start 12/11/20 at 12:15 Enoxaparin Sodium (Lovenox 40mg Syringe) 40 mg Q24H SQ Last administered on 12/11/20at 13:14; Start 12/11/20 at 13:00 Budesonide (Pulmicort) 0.5 mg RTBID NEB Last administered on 12/12/20at 07:37; Start 12/11/20 at 20:00 Montelukast Sodium (Singulair) 10 mg QHS PO Last administered on 12/11/20at 20:37; Start 12/11/20 at 21:00 Albuterol/ Ipratropium (Duoneb) 3 ml PRN Q4HRS PRN NEB WHEEZING; Start 12/11/20 at 13:45 Active Scripts Active Reported Linzess (Linaclotide) 72 Mcg Capsule 72 Mcg PO QID PRN Trelegy Ellipta 200-62.5-25 (Fluticasone/Umeclidin/Vilanter) 1 Each Blst.w.dev 1 Each IH DAILY Ventolin Hfa Inhaler (Albuterol Sulfate) 18 Gm Hfa.aer.ad 2 Puff INH QID Losartan Potassium 50 Mg Tablet 50 Mg PO DAILY Trazodone Hcl 100 Mg Tablet 1 Tab PO QHS Seroquel (Quetiapine Fumarate) 300 Mg Tablet 1 Tab PO QHS Vital Signs Vital Signs Date Time Temp Pulse Resp B/P (MAP) Pulse Ox O2 Delivery O2 Flow Rate FiO2 12/12/20 11:17 98.2 90 18 165/89 (114) 98 Room Air 98.2 Labs Laboratory Tests Test 12/11/20 00:55 12/11/20 02:20 12/11/20 06:09 12/11/20 12:05 White Blood Count 11.0 x10^3/uL (4.0-11.0) Red Blood Count 4.84 x10^6/uL (3.50-5.40) Hemoglobin 13.0 g/dL (12.0-15.5) Hematocrit 39.9 % (36.0-47.0) Mean Corpuscular Volume 82 fL (79-100) Mean Corpuscular Hemoglobin 27 pg (25-35) Mean Corpuscular Hemoglobin Concent 33 g/dL (31-37) Red Cell Distribution Width 15.0 % (11.5-14.5) Platelet Count 240 x10^3/uL (140-400) Neutrophils (%) (Auto) 57 % (31-73) Lymphocytes (%) (Auto) 33 % (24-48) Monocytes (%) (Auto) 7 % (0-9) Eosinophils (%) (Auto) 1 % (0-3) Basophils (%) (Auto) 1 % (0-3) Neutrophils # (Auto) 6.3 x10^3/uL (1.8-7.7) Lymphocytes # (Auto) 3.6 x10^3/uL (1.0-4.8) Monocytes # (Auto) 0.8 x10^3/uL (0.0-1.1) Eosinophils # (Auto) 0.1 x10^3/uL (0.0-0.7) Basophils # (Auto) 0.1 x10^3/uL (0.0-0.2) Prothrombin Time 13.8 SEC (11.7-14.0) Prothromb Time International Ratio 1.1 (0.8-1.1) D-Dimer (Chhaya) 0.46 ug/mlFEU (0.00-0.50) Sodium Level 146 mmol/L (136-145) Potassium Level 3.9 mmol/L (3.5-5.1) Chloride Level 109 mmol/L (98-107) Carbon Dioxide Level 23 mmol/L (21-32) Anion Gap 14 (6-14) Blood Urea Nitrogen 12 mg/dL (7-20) Creatinine 0.6 mg/dL (0.6-1.0) Estimated GFR (Cockcroft-Gault) 125.1 BUN/Creatinine Ratio 20 (6-20) Glucose Level 93 mg/dL (70-99) Calcium Level 8.9 mg/dL (8.5-10.1) Magnesium Level 2.1 mg/dL (1.8-2.4) Total Bilirubin 0.2 mg/dL (0.2-1.0) Aspartate Amino Transf (AST/SGOT) 11 U/L (15-37) Alanine Aminotransferase (ALT/SGPT) 13 U/L (14-59) Alkaline Phosphatase 92 U/L (46-116) Troponin I Quantitative < 0.017 ng/mL (0.000-0.055) < 0.017 ng/mL (0.000-0.055) < 0.017 ng/mL (0.000-0.055) AV-Pma-L-Type Natriuretic Peptide 206 pg/mL (0-124) Total Protein 6.6 g/dL (6.4-8.2) Albumin 3.8 g/dL (3.4-5.0) Albumin/Globulin Ratio 1.4 (1.0-1.7) Lipase 47 U/L (73-393) Urine Collection Type Unknown Urine Color Yellow Urine Clarity Clear Urine pH 6.5 (<5.0-8.0) Urine Specific [place] 1.020 (1.000-1.030) Urine Protein Negative mg/dL (NEG-TRACE) Urine Glucose (UA) Negative mg/dL (NEG) Urine Ketones (Stick) Negative mg/dL (NEG) Urine Blood Moderate (NEG) Urine Nitrite Negative (NEG) Urine Bilirubin Negative (NEG) Urine Urobilinogen Dipstick 1.0 mg/dL (0.2 mg/dL) Urine Leukocyte Esterase Negative (NEG) Urine RBC 20-40 /HPF (0-2) Urine WBC 1-4 /HPF (0-4) Urine Squamous Epithelial Cells Mod /LPF Urine Bacteria Few /HPF (0-FEW) Urine Mucus Mod /LPF Urine Opiates Screen Neg (NEG) Urine Methadone Screen Neg (NEG) Urine Barbiturates Neg (NEG) Urine Phencyclidine Screen Neg (NEG) Urine Amphetamine/Methamphetamine Neg (NEG) Urine Benzodiazepines Screen Neg (NEG) Urine Cocaine Screen Pos (NEG) Urine Cannabinoids Screen Neg (NEG) Urine Ethyl Alcohol Neg (NEG) Test 12/11/20 19:27 12/12/20 07:30 Troponin I Quantitative < 0.017 ng/mL (0.000-0.055) Triglycerides Level 79 mg/dL (0-150) Cholesterol Level 176 mg/dL (0-200) LDL Cholesterol, Calculated 124 mg/dL (0-100) VLDL Cholesterol, Calculated 16 mg/dL (0-40) Non-HDL Cholesterol Calculated 140 mg/dL (0-129) HDL Cholesterol 36 mg/dL (40-60) Cholesterol/HDL Ratio 4.9 Laboratory Tests Test 12/11/20 19:27 12/12/20 07:30 Troponin I Quantitative < 0.017 ng/mL (0.000-0.055) Triglycerides Level 79 mg/dL (0-150) Cholesterol Level 176 mg/dL (0-200) LDL Cholesterol, Calculated 124 mg/dL (0-100) VLDL Cholesterol, Calculated 16 mg/dL (0-40) Non-HDL Cholesterol Calculated 140 mg/dL (0-129) HDL Cholesterol 36 mg/dL (40-60) Cholesterol/HDL Ratio 4.9 Allergies Allergies Coded Allergies Type Severity Reaction Last Updated Verified aspirin Allergy Severe Hives 06/14/16 No Disposition/Orders: D/C to Home Justicifation of Admission Dx: Justifications for Admission: Justification of Admission Dx: No Acute COPD Exacerbation: Acute COPD Exacerbation FULBRIGHT,RTINI W MD Dec 12, 2020 12:51
[2020-12-12] MEDS ORDERED: MAG30ORA2 PO (12:54)
[2020-12-12] MEDS ORDERED: DOCU-153 PO (12:54)
[2020-12-12] MEDS ORDERED: GUAI100L12 PO (12:54)
[2020-12-12] MEDS ORDERED: MONT10TA49 PO (12:54)
[2020-12-12] MEDS ORDERED: LEVO500T8 PO (12:54)
--- NOTE | 2020-12-12 12:56 | DISCH ---
DISCHARGE INSTRUCTIONS Condition on Discharge Condition on Discharge: Stable Activity After Discharge Activity Instructions for Disc: Activity as tolerated Lifting Instructions after Dis: No heavy lifting, No pulling or pushing, Do not lift >10 pounds Exercise Instruction after Dis: Exercise per therapy Driving Instructions after Dis: Do not drive today, No driving for 2 weeks Weight Bearing Status after Di: As tolerated Diet after Discharge Diet after Discharge: Cardiac Diet Texture: Regular Liquid Texture: Thin Liquid Swallowing Supervision: None needed Wound Incision Care Wound/Incision Care: No wound care needed Contacting the DRMagdy after DC Call your doctor for: Concerns you may have Follow-Up Follow up with: PCP IN 3-10 DAYS Follow Up With: OUT PATIENT CHEMICAL DEPENDENCY KIANNA Treatment/Equipment after DC Adaptive Equipment Issued: None Discharge Respiratory Equipmen: Nebulizer TRINI QURESHI MD Dec 12, 2020 12:56
--- NOTE | 2020-12-12 13:16 | NUR ---
SS following for discharge planning. SS reviewed pt chart and discussed with pt RN. Pt is from home and is currently on room air. Discharge order on the chart for home with self care.
[2020-12-12 14:17] VITALS: BP 155/77
--- NOTE | 2020-12-12 17:54 | NUR ---
Discharge Note: LAWSON PLASCENCIA Discharge instructions and discharge home medications reviewed with Patient and a copy given. All questions have been answered and understanding verbalized. The following instructions and handouts were given: follow up, medications, CP, cardiac diet, return to care for her drug use/says she will get back to AA. Discontinued lines and drains: IV removed. No lines present at discharge. Patient discharged to Home. Left by wheelchair to her sones private vehicle.
== END 2020-12-12 14:22 | disposition home or self-care (01) ==
LOC: ER 00:41 → ED HOLD 03:52 → 2 SOUTH 08:57
PROVIDERS: ADMIT Internal Medicine; ATTEND Internal Medicine
DX: R07.89 Other chest pain (principal); J44.1 Chronic obstructive pulmonary disease with (acute) exacerbation; J18.9 Pneumonia, unspecified organism; E66.01 Morbid (severe) obesity due to excess calories; J20.9 Acute bronchitis, unspecified; F14.10 Cocaine abuse, uncomplicated; K59.00 Constipation, unspecified; I10 Essential (primary) hypertension; E78.5 Hyperlipidemia, unspecified; F17.210 Nicotine dependence, cigarettes, uncomplicated; Z90.710 Acquired absence of both cervix and uterus; Z79.899 Other long term (current) drug therapy; Z98.890 Other specified postprocedural states; Z68.36 Body mass index [BMI] 36.0-36.9, adult; Z86.16 Personal history of COVID-19
CPT/HCPCS: 36415; 71045; 80053; 80061; 80307; 81001; 83690; 83735; 83880; 84484; 85025; 85379; 85610; 93005; 94640; 96372; 96374; 99285; G0378; J1650; J2270; J7626; G0379

== ENCOUNTER 2021-09-19 13:56 | Emergency (ER) | payer OTHER ==
[~2021-09-19] VITALS: Ht 165.1 cm; Wt 97.2 kg
[~2021-09-19 13:56] MED LIST changes: +BREO ELLIPTA 21 EACH IH; +CYCL10TA19 PO; -CYCL10TA2 PO; +DOCU-148 PO; -DOXY100C2 PO; +DOXY100C3 PO; +FLUT1BLS15 IH; +GUAI100L12 PO; +LEVO500T9 PO; +LINA72CA PO; +LOSA-73 PO; +MAG30ORA2 PO; +VENTOLIN HFA18 GM INH
[2021-09-19 14:25] VITALS: BP 147/78
[2021-09-19] MEDS ORDERED: DIPHTH,PERTUSS(ACELL),TET TOX 0.5 ML DISP.SYRIN. VAX IM ONE (15:00)
[2021-09-19] MEDS ORDERED: SULF1TAB23 PO (15:03)
[2021-09-19] MEDS ORDERED: HYDR-2761 PO (15:03)
[2021-09-19] MEDS ORDERED: CEPH500T PO (15:03)
--- NOTE | 2021-09-19 15:05 | PHYS DOC ---
Past Medical History Past Medical History: Bronchitis, COPD, Hypertension Additional Past Medical Histor: "heart murmur"; skin boils, HS, chronic knee and back pain Past Surgical History: Hysterectomy, Other Additional Past Surgical Histo: bilat axila surgery, back surgery, knee surgery Smoking Status: Current Every Day Smoker Alcohol Use: None Drug Use: None General Adult EDM: Chief Complaint: ABSCESS HPI: HPI: Patient is a 56 year old female who presents to the ED today complaining of an abscess on the left axilla that she has had for 5 days. Patient states the abscess opened up today and is draining. Denies any fever. Reports history of axilla abscesses as well as groin abscesses. Review of Systems: Review of Systems: Constitutional: Denies fever or chills. [] Musculoskeletal: Denies back pain or joint pain. [] Integument: Reports left axilla abscess Neurologic: Denies headache, focal weakness or sensory changes. [] Psychiatric: Denies depression or anxiety. [] Heart Score: C/O Chest Pain: N/A Risk Factors: Risk Factors: DM, Current or recent (<one month) smoker, HTN, HLP, family history of CAD, obesity. Risk Scores: Score 0 - 3: 2.5% MACE over next 6 weeks - Discharge Home Score 4 - 6: 20.3% MACE over next 6 weeks - Admit for Clinical Observation Score 7 - 10: 72.7% MACE over next 6 weeks - Early Invasive Strategies Current Medications: Current Medications Medications (Trade) Dose Ordered Sig/Gurmeet Start Time Stop Time Status Last Admin Dose Admin Diphtheria/ Tetanus/Acell Pertussis (Boostrix) 0.5 ml ONCE ONCE 09/19/21 15:00 09/19/21 15:01 Allergies: Allergies: Allergies Coded Allergies Type Severity Reaction Last Updated Verified aspirin Allergy Severe Hives 06/14/16 No Physical Exam: PE: Constitutional: Well developed, well nourished, no acute distress, non-toxic appearance. [] Skin: Left axilla with an indurated area roughly 3 x 1 cm, the area is open and draining. Pus was expressed to the area, it was covered. Back: No tenderness, no CVA tenderness. [] Extremities: No tenderness, no cyanosis, no clubbing, ROM intact, no edema. [] Neurologic: Alert and oriented X 3, normal motor function, normal sensory function, no focal deficits noted. [] Psychologic: Affect normal, judgement normal, mood normal. [] Current Patient Data: Vital Signs: Vital Signs Date Time Temp Pulse Resp B/P (MAP) Pulse Ox O2 Delivery O2 Flow Rate FiO2 09/19/21 14:25 98.7 96 20 147/78 (101) 99 Room Air 98.7 EKG: EKG: [] Radiology/Procedures: Radiology/Procedures: Indication: abscess left axilla Procedure: The patient was positioned appropriately. Local anesthesia was N/A. Mild amount of yellow bloody material was expressed. The drainage cavity was irrigated and covered with sterile gauze. The patients tetanus status updated as needed. The patient tolerated the procedure well. Complications: none.[] Course & Med Decision Making: Course & Med Decision Making Pertinent Labs and Imaging studies reviewed. (See chart for details) This a 56-year-old female patient presenting to the ED today with left axilla abscess that has been going on for 5 days. The abscess is open and draining in the ED. I was able to express some pus from the area though there is still more that could have been drained but patient could not tolerate it. She follows up with a surgeon for this. She was discharged on cephalexin and Bactrim. Wound care instructions and return precautions provided. Tetanus updated Sunitha Disclaimer: Sunitha Disclaimer: This electronic medical record was generated, in whole or in part, using a voice recognition dictation system. Departure Departure Impression: Primary Impression: Abscess of axilla, left Disposition: 01 HOME / SELF CARE / HOMELESS Condition: STABLE Referrals: RAE VAUGHN MD (PCP) Follow-up with your general surgeon as well as your primary care doctor Patient Instructions: Abscess Additional Instructions: You have an abscess to the left axilla, keep applying warm compresses to the area 3 times a day. It will continue to drain. Take the prescribed antibiotics until completed. Follow-up with your general surgeon as soon as you can Scripts Hydrocodone Bit/Acetaminophen (HYDROCODONE-APAP 5-325 ) 1 Tab Tablet 1 TAB PO PRN Q6HRS PRN for PAIN, #14 TAB 0 Refills Prov: [facility]RES [facility] [employer] [facility] 09/19/21 Cephalexin (CEPHALEXIN) 500 Mg Tablet 1 TAB PO TID, #30 TAB Prov: ANDRES GEORGE APRN 09/19/21 Sulfamethoxazole/Trimethoprim (BACTRIM 400-80 MG TABLET) 1 Each Tablet 1 TAB PO BID for 10 Days, #20 TAB 0 Refills Prov: ANDRES GEORGE APRN 09/19/21 ANDRES GEORGE APRN Sep 19, 2021 15:05
== END 2021-09-19 15:11 | disposition home or self-care (01) ==
LOC: ER 13:56
DX: L02.412 Cutaneous abscess of left axilla (principal); J44.9 Chronic obstructive pulmonary disease, unspecified; I10 Essential (primary) hypertension; F17.200 Nicotine dependence, unspecified, uncomplicated; Z88.6 Allergy status to analgesic agent
CPT/HCPCS: 90471; 90715; 99283-25

== ENCOUNTER 2021-10-18 12:29 | Emergency (ER) | payer OTHER ==
[~2021-10-18] VITALS: Ht 165.1 cm; Wt 97.0 kg
[~2021-10-18 12:29] MED LIST changes: +BUPR100T16 PO; -BUPR100T8 PO; +SULF1TAB23 PO
[2021-10-18 13:02] VITALS: BP 173/94
[2021-10-18] MEDS ORDERED: HYDR-2761 PO ×2 (13:32→13:34)
--- NOTE | 2021-10-18 13:35 | PHYS DOC ---
Past Medical History Past Medical History: Bronchitis, COPD, Hypertension Additional Past Medical Histor: "heart murmur"; skin boils, HS, chronic knee and back pain Past Surgical History: Hysterectomy, Other Additional Past Surgical Histo: bilat axila surgery, back surgery, knee surgery Smoking Status: Current Every Day Smoker Alcohol Use: None Drug Use: None General Adult EDM: Chief Complaint: KNEE INJURY HPI: HPI: Patient is a 56 year old female with a history of COPD, hypertension, bronchitis, presenting to the ED today complaining of 10 out of 10 left knee pain, symptoms of been going on since 2019 after an injury at work. Patient denies any new injuries. She states she is scheduled to have left knee replacement on November 28, 2021 but currently does not have anything for her pain. She states she has been rotating through Tylenol and Motrin with minimal improvement of her pain. Patient describes the pain as a burning and constant worse on walking. She states today she was sent home from work. Review of Systems: Review of Systems: Constitutional: Denies fever or chills. [] Musculoskeletal: Reports left knee pain Integument: Denies rash. [] Neurologic: Denies headache, focal weakness or sensory changes. [] Psychiatric: Denies depression or anxiety. [] Heart Score: C/O Chest Pain: N/A Risk Factors: Risk Factors: DM, Current or recent (<one month) smoker, HTN, HLP, family history of CAD, obesity. Risk Scores: Score 0 - 3: 2.5% MACE over next 6 weeks - Discharge Home Score 4 - 6: 20.3% MACE over next 6 weeks - Admit for Clinical Observation Score 7 - 10: 72.7% MACE over next 6 weeks - Early Invasive Strategies Allergies: Allergies: Allergies Coded Allergies Type Severity Reaction Last Updated Verified aspirin Allergy Severe Hives 06/14/16 No Physical Exam: PE: Constitutional: Well developed, well nourished, no acute distress, non-toxic appearance. [] Skin: Warm, dry, no erythema, no rash. [] Back: No tenderness, no CVA tenderness. [] Extremities: Left knee with no obvious deformity. Diffuse tenderness throughout the knee, no cyanosis, no clubbing, ROM intact, no edema. +2 left pedal pulse Neurologic: Alert and oriented X 3, normal motor function, normal sensory function, no focal deficits noted. [] Psychologic: Affect normal, judgement normal, mood normal. [] Current Patient Data: Vital Signs: Vital Signs Date Time Temp Pulse Resp B/P (MAP) Pulse Ox O2 Delivery O2 Flow Rate FiO2 10/18/21 13:02 98.4 20 173/94 (120) 95 Room Air 98.4 EKG: EKG: [] Radiology/Procedures: Radiology/Procedures: [] Course & Med Decision Making: Course & Med Decision Making Pertinent Labs and Imaging studies reviewed. (See chart for details) This is a 56-year-old female patient presenting to the ED today with chronic left knee pain. She is scheduled to have left knee replacement on November 28, 2021. Currently taking ibuprofen and Tylenol with no relief. Given prescription for hydrocodone. Follow-up with her orthopedic doctor Sunitha Disclaimer: Sunitha Disclaimer: This electronic medical record was generated, in whole or in part, using a voice recognition dictation system. Departure Departure Impression: Primary Impression: Left knee pain Qualified Codes: M25.562 - Pain in left knee Disposition: HOME / SELF CARE / HOMELESS Condition: STABLE Referrals: RAE VAUGHN MD (PCP) Follow-up with the orthopedic doctor as soon as you can Patient Instructions: Knee Pain, [id number] Additional Instructions: You were evaluated in the emergency room for left knee pain, please contact your orthopedic doctor in follow-up. Scripts Hydrocodone Bit/Acetaminophen (HYDROCODONE-APAP 5-325 ) 1 Tab Tablet 1 TAB PO PRN Q6HRS PRN for PAIN, #28 TAB 0 Refills Prov: ANDRES GEORGE APRN 10/18/21 ANDRES GEORGE APRN Oct 18, 2021 13:35
== END 2021-10-18 14:11 | disposition home or self-care (01) ==
LOC: ER 12:29
DX: M25.562 Pain in left knee (principal); J44.9 Chronic obstructive pulmonary disease, unspecified; F17.200 Nicotine dependence, unspecified, uncomplicated; I10 Essential (primary) hypertension; Z90.710 Acquired absence of both cervix and uterus; G89.29 Other chronic pain; Z96.652 Presence of left artificial knee joint; Z88.6 Allergy status to analgesic agent
CPT/HCPCS: 99283